=== PATIENT | female | born 2000 | race Hispanic/Latino ===

== ENCOUNTER 2019-01-04 14:09 | Emergency (ER) | payer BC ==
[2019-01-04 15:19] LABS: Absolute Lymphocytes (CBC) 1.8 K/uL (0.7-4.9); Basophils % 0.6 % (0-1.3); Hematocrit 43.4 % (36.0-45.0); Lymphocytes % 20.7 % (15.3-44.8); MPV 9.2 fL (7.6-11.3); Monocytes % 5.6 % (3.3-12.3); RBC Red Blood Cell Count 4.93 M/uL (3.86-4.86)
[2019-01-04 15:24] LABS: Protime INR 1.11
[2019-01-04 15:43] LABS: ALT/SGPT 16 U/L (12-78); AST/SGOT 17 U/L (15-37); Albumin 5.7 g/dL (3.4-5.0); Alkaline Phosphatase 73 U/L (45-117); BUN Blood Urea Nitrogen 11 mg/dL (7-18); Bicarbonate 24 mmol/L (21-32); Bilirubin Direct 0.4 mg/dL (0-0.2); Bilirubin Total 1.7 mg/dL (0.2-1.0); Glucose Level 91 mg/dL (74-106); Potassium 3.7 mmol/L (3.5-5.1); Protein, Total 8.2 g/dL (6.4-8.2); Sodium Level 138 mmol/L (136-145)
[2019-01-04 15:47] LABS: Barbiturates NEGATIVE (NEGATIVE); Benzodiazepines NEGATIVE (NEGATIVE); Cocaine NEGATIVE (NEGATIVE); METHAMPHETAM NEGATIVE (NEGATIVE); Methadone NEGATIVE (NEGATIVE); Opiates NEGATIVE (NEGATIVE); Phencyclidine NEGATIVE (NEGATIVE); THC Cannibis NEGATIVE (NEGATIVE)
[2019-01-04] MEDS ORDERED: DIAZEPAM 5 MG TABLET ONE (16:13)
[2019-01-04 17:11] LABS: Urine Blood NEGATIVE (NEG); Urine Glucose NEGATIVE (NEG); Urine Protein NEGATIVE (NEG); Urine Specific Gravity <1.005 (1.005-1.030); Urine pH 6.5 (5.0-7.0)
--- NOTE | 2019-01-04 18:44 | ER ---
Nurse's Notes [facility] Name: Negrita Souza Age: 18 yrs Sex: Female : 2000 Arrival Date: 01/04/2019 Time: 14:12 Bed 16 Private MD: Diagnosis: Manic episode;Manic episode, unspecified Presentation: 01/04 14:13 Presenting complaint: Patient states: 6 days ago, i took edible marijuana and i feel hj like i need help; denies hurting self, denies homicidal; reports being manic for 2-3 days; haven't slept and eaten a good meal; reports being diagnosed with psychosis; on triage, pt is uneasy, with written words on her L arm; with significant other during triage;. Transition of care: patient was not received from another setting of care. Onset of symptoms was January 04, 2019. Risk Assessment: Do you want to hurt yourself or someone else? Patient reports no desire to harm self or others. Initial Sepsis Screen: Does the patient meet any 2 criteria? No. Patient's initial sepsis screen is negative. Does the patient have a suspected source of infection? No. Patient's initial sepsis screen is negative. Care prior to arrival: None. 14:13 Method Of Arrival: Ambulatory 14:13 Acuity: KARLIE 2 hj Triage Assessment: 14:18 General: Appears in no apparent distress. uncomfortable, slender, Behavior is manic. hj Pain: Denies pain. 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 - Social history:: Smoking status: Patient/guardian denies using tobacco. - Ebola Screening: : No symptoms or risks identified at this time. Screenin:11 Abuse screen: Denies threats or abuse. Denies injuries from another. Nutritional sg screening: No deficits noted. Tuberculosis screening: No symptoms or risk factors identified. Never had TB. Fall Risk None identified. Assessment: 15:11 Reassessment: Patient appears in no apparent distress at this time. Patient and/or sg family updated on plan of care and expected duration. Pain level reassessed. Patient is alert, oriented x 3, equal unlabored respirations, skin warm/dry/pink. pt family/friend at bedside at this time. 15:20 General: Appears in no apparent distress. well groomed, well developed, well nourished, sg Behavior is cooperative, appropriate for age, anxious, restless. Pain: Denies pain. Neuro: Level of Consciousness is awake, alert, obeys commands, Oriented to person, place, time, Dairy Inspector are equal bilaterally Moves all extremities. Full function Speech is normal, Facial symmetry appears normal. Cardiovascular: Capillary refill is brisk in bilateral fingers Patient's skin is warm and dry. Chest pain is denied. Respiratory: Airway is patent Respiratory effort is even, unlabored, Respiratory pattern is regular, symmetrical. GI: Abdomen is flat, non-distended. : No signs and/or symptoms were reported regarding the genitourinary system. EENT: No signs and/or symptoms were reported regarding the EENT system. Derm: Skin is pink, warm \T\ dry. Musculoskeletal: Circulation, motion, and sensation intact. Range of motion: intact in all extremities. 16:11 Reassessment: Patient appears in no apparent distress at this time. No changes from sg previously documented assessment. pt still has anxiety at this time, pt requesting family/friend wait in the lobby, pt remains alone in the room, pt states that she is not homicidal or suicidal at this time, will continue to monitor. 18:25 Reassessment: Patient appears in no apparent distress at this time. report called to zhao Mcdonough with [facility]. 19:52 Reassessment: Patient and/or family updated on plan of care and expected duration. Pain ea level reassessed. Patient is alert, oriented x 3, equal unlabored respirations, skin warm/dry/pink. [facility] at facility for transfer, report given to [facility]. Pt left via stretcher per EMS, tolerating well. No s/s of pain or discomfort noted at this time. Psych: 15:33 Subjective: Patient's mood is elevated, Delusions are denied, Hallucinations are denied sg Having thoughts of denies suicidal/homicidal tendencies at this time. Objective: Patient is cooperative, restless, Speech is rapid, Affect is appropriate. Interventions: Urine collected and sent for urine drug test. Suicide Risk Assessment: Sad Person Scale: Sex of patient: Female: Score 0 points. Age of patient: Score 1 point if patient 15-34. Depression: Score 0 point if signs of depression are not present. Previous Attempt: Score 0 point if patient has not previously attempted suicide. Substance Abuse: Score 1 point if patient abuses alcohol or drugs. Rational Thinking: Score 0 point if patient has rational thinking. Social Support: Score 0 if social support is present/available. Relationship: Score 0 point if patient has a spouse or domestic partner. Chronic Sickness: Score 1 point if patient has illness, chronic, debilitating, or severe. TOTAL POINTS: If total points are 3-4, proposed clinical action is close follow-up/consider hospitalization. Safety Checks: Visitors are present. Patient uses marijuana monthly. Vital Signs: 14:19 BP 110 / 65; Pulse 98; Resp 20; Temp 98.6(TE); Pulse Ox 99% on R/A; Weight 45.36 kg; hj Height 5 ft. 1 in. (154.94 cm); Pain 0/10; 14:19 Body Mass Index 18.89 (45.36 kg, 154.94 cm) ED Course: 14:12 Patient arrived in ED. mr 14:18 Triage completed. hj 14:18 Henok Cabral MD is Attending Physician. kdr 14:18 Arm band placed on right wrist. hj 15:07 Initial lab(s) drawn, by wv, sent to lab. Inserted saline lock: 22 gauge in left jb1 antecubital area, using aseptic technique. Blood collected. 15:07 Urine collected: clean catch specimen, cloudy, lavon colored. jb1 15:11 Zack Peres, RN is Primary Nurse. sg 19:56 No provider procedures requiring assistance completed. IV discontinued, intact, ea bleeding controlled, No redness/swelling at site. Pressure dressing applied. Administered Medications: 16:05 Drug: Valium 5 mg Route: PO; sg 17:00 Follow up: Response: No adverse reaction; No change in condition sg Outcome: 18:43 ER care complete, transfer ordered by . kdr 19:30 Instructed on the need for transfer. ea 19:55 Transferred by ground EMS to other acute care facility: [facility]. Transfer ea form completed. 19:55 Condition: stable 20:00 Patient left the ED. ea Signatures: Montrell Viveros jb1 Zack Peres RN RN Henok Cabral MD MD [facility] Kylah Guillen mr Darrel Russell RN RN hj Antunez, Elena, RN RN ea Corrections: (The following items were deleted from the chart) 14:21 14:19 Pulse 98bpm; Resp 20bpm; Pulse Ox 99% RA; Temp 98.6F Temporal; 45.36 kg; Height 5 hj ft. 1 in.; BMI: 18.8; Pain 0/10; hj 14:23 14:13 Presenting complaint: Patient states: 6 days ago, i took edible marijuana and i hj feel like i need help; denies hurting self, denies homicidal; reports being manic for 2-3 days; haven't slept and eaten a good meal; hj
--- NOTE | 2019-01-04 18:44 | EDPHYS ---
Physician Documentation [facility] Name: Negrita Souza Age: 18 yrs Sex: Female : 2000 Arrival Date: 01/04/2019 Time: 14:12 Bed 16 Private MD: ED Physician Henok Cabral HPI: 01/05 07:36 This 18 yrs old Female presents to ER via Ambulatory with complaints of Psych kdr Problem. 07:36 The patient presents to the emergency department with anxiety, over unknown kdr circumstances, psychosis, has delusions, The patient is very manic. Onset: The symptoms/episode began/occurred 5 day(s) ago. Past psychiatric history: Prior diagnosis: Unknown. The patient had a prior inpatient admission in [place] many years ago when she was about 14, Psychiatric medications include: none. Associated signs and symptoms: The patient has no apparent associated signs or symptoms. Severity of symptoms: At their worst the symptoms were moderate in the emergency department the symptoms are unchanged are worse mildly. The patient has experienced similar episodes in the past, a few times. The patient has not recently seen a physician. 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 - Social history:: Smoking status: Patient/guardian denies using tobacco. - Ebola Screening: : No symptoms or risks identified at this time. ROS: 01/05 07:36 Constitutional: Negative for fever, chills, and weight loss, Eyes: Negative for injury, kdr pain, redness, and discharge, ENT: Negative for injury, pain, and discharge, Neck: Negative for injury, pain, and swelling, Cardiovascular: Negative for chest pain, palpitations, and edema, Respiratory: Negative for shortness of breath, cough, wheezing, and pleuritic chest pain, Abdomen/GI: Negative for abdominal pain, nausea, vomiting, diarrhea, and constipation, Back: Negative for injury and pain, : Negative for injury, bleeding, discharge, and swelling, MS/Extremity: Negative for injury and deformity, Skin: Negative for injury, rash, and discoloration, Neuro: Negative for headache, weakness, numbness, tingling, and seizure activity. Allergy/Immunology: Negative for hives, rash, and allergies, Endocrine: Negative for neck swelling, polydipsia, polyuria, polyphagia, and marked weight changes, Hematologic/Lymphatic: Negative for swollen nodes, abnormal bleeding, and unusual bruising. Psych: Positive for anxiety, insomnia, The patient is in a manic state and states that she needs to take a shower repeatedly.. Exam: 07:36 Constitutional: This is a well developed, well nourished patient who is awake, alert, kdr and in mild distress. She is busy around the room and is speaking non-sensically and with pressured speech. Head/Face: Normocephalic, atraumatic. Eyes: Pupils equal round and reactive to light, extra-ocular motions intact. Lids and lashes normal. Conjunctiva and sclera are non-icteric and not injected. Cornea within normal limits. Periorbital areas with no swelling, redness, or edema. Neck: Trachea midline, no thyromegaly or masses palpated, and no cervical lymphadenopathy. Supple, full range of motion without nuchal rigidity, or vertebral point tenderness. No Meningismus. Chest/axilla: Normal chest wall appearance and motion. Nontender with no deformity. No lesions are appreciated. Cardiovascular: Regular rate and rhythm with a normal S1 and S2. No gallops, murmurs, or rubs. Normal PMI, no JVD. No pulse deficits. Respiratory: Lungs have equal breath sounds bilaterally, clear to auscultation and percussion. No rales, rhonchi or wheezes noted. No increased work of breathing, no retractions or nasal flaring. Abdomen/GI: Soft, non-tender, with normal bowel sounds. No distension or tympany. No guarding or rebound. No evidence of tenderness throughout. Back: No spinal tenderness. No costovertebral tenderness. Full range of motion. Skin: Warm, dry with normal turgor. Normal color with no rashes, no lesions, and no evidence of cellulitis. MS/ Extremity: Pulses equal, no cyanosis. Neurovascular intact. Full, normal range of motion. Neuro: Awake and alert, GCS 15, oriented to person, place, time, and situation. Cranial nerves II-XII grossly intact. Motor strength 5/5 in all extremities. Sensory grossly intact. Cerebellar exam normal. Normal gait. 07:36 Psych: Behavior/mood is cooperative, anxious, Affect is animated, Oriented to person, place, time, Patient has no thoughts/intents to harm self or others. Judgement / Insight is impaired. Delusions/hallucinations are present and described as The patient thinks she needs to shower to get the "evil out.". Vital Signs: 01/04 14:19 BP 110 / 65; Pulse 98; Resp 20; Temp 98.6(TE); Pulse Ox 99% on R/A; Weight 45.36 kg; hj Height 5 ft. 1 in. (154.94 cm); Pain 0/10; 14:19 Body Mass Index 18.89 (45.36 kg, 154.94 cm) hj MDM: 18:43 Patient medically screened. [facility] 01/05 07:36 Data reviewed: vital signs, nurses notes, lab test result(s). Counseling: I had a [facility] detailed discussion with the patient and/or guardian regarding: the historical points, exam findings, and any diagnostic results supporting the discharge/admit diagnosis, lab results, the need to transfer to another facility. 01/04 14:20 Order name: Acetaminophen [facility] 01/04 14:20 Order name: Basic Metabolic Panel [facility] 01/04 14:20 Order name: CBC with Diff; Complete Time: 15:54 [facility] 01/04 14:20 Order name: ETOH Level; Complete Time: 15:54 [facility] 01/04 14:20 Order name: Hepatic Function [facility] 01/04 14:20 Order name: PT-INR; Complete Time: 15:54 [facility] 01/04 14:20 Order name: Ptt, Activated; Complete Time: 15:54 [facility] 01/04 14:20 Order name: Salicylate [facility] 01/04 14:20 Order name: Urine Drug Screen [facility] 01/04 14:20 Order name: IV Saline Lock; Complete Time: 15:07 [facility] 01/04 14:20 Order name: Labs collected and sent; Complete Time: 15:07 [facility] 01/04 14:20 Order name: Urine Dipstick-Ancillary (obtain specimen); Complete Time: 15:07 [facility] 01/04 15:02 Order name: Urine Dipstick--Ancillary (enter results) ms Administered Medications: 07/10 16:05 Drug: Valium 5 mg Route: PO; 17:00 Follow up: Response: No adverse reaction; No change in condition sg Disposition: 01/04/19 18:43 Transfer ordered to Psych Facility. Diagnosis are Manic episode, Manic episode, unspecified. - Reason for transfer: Higher level of care. - Accepting physician is Dr. Espinal. - Condition is Fair. - Problem is an acute exacerbation. - Symptoms are unchanged. Signatures: Dispatcher [employer] EDZack Lacey RN RAS Henok Cabral MD MD kdr Joaquin, Henry, RN RN Bridgett Austin RN RN ea Corrections: (The following items were deleted from the chart) 20:00 18:43 01/04/2019 18:43 Transfer ordered to Psych Facility. Diagnosis is Manic episode; ea Manic episode, unspecified. Reason for transfer: Higher level of care. Accepting physician is Dr. Espinal. Condition is Fair. Problem is an acute exacerbation. Symptoms are unchanged. kdr
== END 2019-01-04 20:00 ==
LOC: ER 14:09
DX: F30.9 Manic episode, unspecified (principal)
CPT/HCPCS: 36415; 80048; 80076; 80307; 80320; 80329; 81003; 85025; 85610; 85730; 99285

== ENCOUNTER 2020-12-12 23:32 | Emergency (ER) | payer BC, SELFPAY ==
--- OUTSIDE RECORDS SUMMARY | 2020-12-12 23:35 | XMS REPORT | Continuity of Care Document ---
:2000 Author Organization [facility] t Address [address] [place] [address] Care Team Providers Name Role Phone Unavailable Unavailable Unavailable Problems Condition Condition Condition Status Onset Resolution Last Treating Co mments Source Name Details Category Date Date Treatment Clinician Date Mixed Mixed Diagnosis Active [facility] hyperlipid hyperlipid Nolvia kes - emia emia Memoria l [facility] ent Clinics Generalize Generalize Diagnosis Active [facility] d anxiety d anxiety [facility] - disorder disorder Memori a l [facility] Clinics Abnormal Abnormal Problem Active [facility] Depression Depression Diagnosis Active [facility] , major, , major, [facility] - single single [facility]oria episode, episode, l mild mild [facility] Clinics Bipolar Bipolar Problem Active [facility] affective affective Luke [facility] - disorder, disorder, Remi libby current current l episode episode [facility] manic, manic, ent current current Clinics episode episode severity severity unspecifie unspecifie d d Adult BMI Adult BMI Diagnosis Active [facility] 27.0-27.9 27.0-27.9 Luke s - kg/sq m kg/sq m Mem[facility] l [facility] ent Clinics Abdominal Abdominal Diagnosis Active [facility] bloating bloating [facility] - [facility] Clinics Memory Memory Diagnosis Active [facility] change change [facility] Clinics GERD GERD Diagnosis Active [facility] without without [facility] - esophagiti esophagiti Me moria s s l [facility] ent Clinics Change in Change in Diagnosis Active [facility] bowel bowel [facility] - habit habit [facility] l [facility] ent Clinics Allergies, Adverse Reactions, Alerts This patient has no known allergies or adverse reactions. Medications Ordered Filled Start Stop Current Ordering Indication Dosage Frequency Signature Comments Components Source Medication Medication Date Date Medication? Clinician (SIG) Name Name Quetiapine Quetiapine Yes Mj TAKE ONE [facility] Fumarate Fumarate Win (1) [facility] - TABLET(S) Memoria BY MOUTH l AT [facility] BEDTIME. ent Clinics Mirtazapine Mirtazapine Yes Jm DISSOLVE [facility] Win ONE (1) [facility] - TABLET(S) Memoria BY MOUTH l ON THE [facility] TONGUE ent ONCE A DAY Clinics AT BEDTIME. Sertraline Sertraline Yes Mj TAKE FOUR [facility] HCl HCl Win (4) ML(S) [facility] - BY MOUTH [facility]oria DAILY. l [facility] ent Clinics Sertraline Sertraline Yes Mj [address] [facility] HCl HCl Win [facility] - [facility] l [facility] ent Clinics Procedures This patient has no known procedures. Encounters Start End Encounter Admission Attending Care Care Encounter Source Date/Time Date/Time Type Type Clinicians Facility Department ID 2020-03-13 2020-03-13 Outpatient Lazara Duenas [id number] [facility] 10:10:00 10:10:00 [employer] [facility] Medicine l Medicine [facility] ent Clinics 2019-11-08 2019-11-08 Outpatient Lazara Duenas [id number] [facility] 11:45:00 11:45:[address] [facility] Family Medicine l Medicine [facility] ent Clinics 2019-08-03 2019-08-03 Outpatient Lazara Duenas [id number] [facility] 15:00:00 15:00:00 [facility] Family Medicine l Medicine [facility] ent Clinics Results This patient has no known results.
[2020-12-13 00:29] LABS: Urine Blood Negative (Negative); Urine Glucose Negative (Negative); Urine Protein Negative (Negative); Urine pH 6.5 (5.0-7.0)
[2020-12-13] MEDS ORDERED: LORAZEPAM 1 MG TABLET ONE (01:26)
--- NOTE | 2020-12-13 01:59 | ER ---
Nurse's Notes [facility] Name: Negrita Souza Age: 20 yrs Sex: Female : 2000 Arrival Date: 12/12/2020 Time: 23:38 Bed 6 Private MD: Diagnosis: Bipolar disorder;Manic episode, unspecified Presentation: 12/12 23:38 Chief complaint: EMS states: called out for having a manic episode, hx of em bipolar/schizophrenia, denies HI/SI, has a lot of stress in her life, also states she could be , last LMP 1 week ago. Coronavirus screen: Client denies travel out of the [place] in the last 14 days. Ebola Screen: Patient negative for fever greater than or equal to 101.5 degrees Fahrenheit, and additional compatible Ebola Virus Disease symptoms Patient denies exposure to infectious person. Patient denies travel to an Ebola-affected area in the 21 days before illness onset. No symptoms or risks identified at this time. Initial Sepsis Screen: Does the patient meet any 2 criteria? HR > 90 bpm. No. Patient's initial sepsis screen is negative. Does the patient have a suspected source of infection? No. Patient's initial sepsis screen is negative. Risk Assessment: Do you want to hurt yourself or someone else? Patient reports no desire to harm self or others. Onset of symptoms was December 12, 2020. 23:38 Method Of Arrival: EMS: [facility] em 23:38 Acuity: KARLIE 2 em Triage Assessment: 23:42 General: Appears in no apparent distress. Behavior is calm, cooperative. Pain: Denies ak2 pain. 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 - Social history:: Smoking status: Patient reports the use of cigarette tobacco products, denies chronic smoking, but will smoke occasionally. - Family history:: not pertinent. Screenin:41 Abuse screen: Denies threats or abuse. Denies injuries from another. Nutritional ak2 screening: No deficits noted. Tuberculosis screening: No symptoms or risk factors identified. Fall Risk None identified. Assessment: 23:50 General: Appears in no apparent distress. uncomfortable, Behavior is anxious, rr5 uncooperative, refused to have IV re insertion wants to talk to the doctor first. Pain: Denies pain. Neuro: Level of Consciousness is awake, alert, Oriented to person, place, time. Cardiovascular: Capillary refill < 3 seconds Patient's skin is warm and dry. Respiratory: Airway is patent Respiratory effort is even, unlabored, Respiratory pattern is regular, symmetrical. GI: No signs and/or symptoms were reported involving the gastrointestinal system. : No signs and/or symptoms were reported regarding the genitourinary system. EENT: No signs and/or symptoms were reported regarding the EENT system. Derm: Skin is intact, is healthy with good turgor, Skin temperature is warm. 23:50 Musculoskeletal: No signs and/or symptoms reported regarding the musculoskeletal system.rr5 23:50 Reassessment: verbalized i want be alone i need you to get out of the room as stated by rr5 patient. 12/13 00:07 Reassessment: Patient appears in no apparent distress at this time. provider at bedside.rr5 00:15 Reassessment: refused for work up. rr5 00:53 Reassessment: Jimenez (father) [phone]. em 01:40 Reassessment: alex RN spoke to patient to do blood exam but she still refused to do rr5 it. went to nurses station spoke to ED provider. 02:39 Reassessment: Patient appears in no apparent distress at this time. resting eyes closed rr5 breathing spontaneously at room air, awaiting for results. 05:50 Reassessment: Patient appears in no apparent distress at this time. Patient is alert, rr5 oriented x 3, equal unlabored respirations, skin warm/dry/pink. awake went to restroom, voided freely. 06:07 Reassessment: awaiting for mental facility acceptance. rr5 06:15 Reassessment: patient gave verbal consent to give information to her father over the rr5 phone. 06:47 Reassessment: Patient appears in no apparent distress at this time. Patient is alert, rr5 oriented x 3, equal unlabored respirations, skin warm/dry/pink. calm, cooperative, follows command. 07:10 Reassessment: Patient appears in no apparent distress at this time. Patient and/or ph family updated on plan of care and expected duration. Pain level reassessed. Patient is alert, oriented x 3, equal unlabored respirations, skin warm/dry/pink. Pt sitting quietly, requesting pen and paper to "draw and write", father at bedside, awaiting acceptance at psychiatric facility. 10:22 Reassessment: pt sitting at nursing station. resting comfortably. calm, cooperative. tr6 denies need for any assistance at this time. 11:05 Reassessment: pt at RN station on phone with her pharmacy. home med list received and tr6 updated in chart. 12:41 Reassessment: Nurse to nurse report given to Cynthia at [facility]. ph 13:51 Reassessment: pt upset and crying, but consolable. RN at bedside. pt cooperative. tr6 informed of POC. pending transfer. father at bedside. 15:21 Reassessment: Belongings given to father and taken home. Awaiting [facility] to transport patient to [facility]. Pt remains voluntary. EMS dispatch states that they will be here within approximately 45 minutes. Psych: 12/12 23:44 [place] Suicide Severity Screening: In the past month, have you wished you were ak2 or wished you could go to sleep and not wake up? Patient responds "No." "In the past month, have you actually had any thoughts of killing yourself?" Patient responds "no." "In your lifetime, have you ever done anything, started to do anything, or prepared to do anything to end your life?" Patient responds "no.". Subjective: Patient's mood is elevated, Delusions are denied, Hallucinations are denied Having thoughts of. Objective: Patient is cooperative, Speech is normal, Affect is appropriate. Safety Checks: Door is open. Pt denies substance abuse. 12/13 00:00 Interventions: Removed personal items and placed in bag. Searched person for dangerous rr5 items. Urine collected and sent for urine drug test. 00:00 Commitment: Patient will be a voluntary commitment. rr5 01:00 Interventions: Patient reassessed during use of restraints. Patient is physically safe. rr5 Patient's cardiac status is stable. Patient's respirations are even and unlabored. Patient has good circulation in all extremities as indicated by capillary refill < 3 seconds. Patient's ROM assessed and is intact. Patient hygiene and elimination needs met. Patient assessed for signs of distress. Patient remains reasonably comfortable at this time. Assisted patient in de-escalation of behavior by removing stimuli causing behavior where possible. Restraints continue to be necessary for patient and staff safety. Vital Signs: 12/12 23:38 BP 127 / 87; Pulse 109; Resp 20; Temp 98.9; Pulse Ox 98% on R/A; Weight 52.62 kg; em Height 5 ft. 0 in. (152.40 cm); 12/13 02:49 BP 121 / 75; Pulse 90; Resp 16; Pulse Ox 99% ; rr5 06:39 BP 110 / 63; Pulse 76; Resp 16; Pulse Ox 100% on R/A; ak2 12:30 BP 118 / ???; Pulse 68; Resp 16; Temp 98.2; Pulse Ox 99% on R/A; ph 12/12 23:38 Body Mass Index 22.65 (52.62 kg, 152.40 cm) em ED Course: 12/12 23:38 Patient arrived in ED. em 23:40 Gunnar Barrios, RN is Primary Nurse. rr5 23:40 Triage completed. em 23:41 No apparent distress. ak2 23:41 Patient has correct armband on for positive identification. ak2 23:41 No provider procedures requiring assistance completed. ak2 23:42 Arm band placed on. em 23:50 Missed attempt(s): 20 gauge in right forearm. Bleeding controlled, band aid applied, rr5 catheter tip intact. 12/13 00:03 Charlie See MD is Attending Physician. [facility] 00:31 called the [facility] Crisis Line [phone]/ Sushma took patients information and eb will page out the screener family health nurse practitioner. 00:55 Urine collected: clean catch specimen, clear. rr5 01:00 connect Shalis from the [facility] with Dr. See for patient consultation. eb 01:07 connected Carlos from the [facility] via facetime with patient for screening. eb 02:00 Inserted saline lock: 22 gauge in left antecubital area, using aseptic technique. rr5 ,using aseptic technique. inserted by reji MCGINNIS Blood collected. 02:10 EKG done, by ED staff, reviewed by Charlie See MD. rr5 04:02 faxed patient records to the following facilities in attempt to transfer: [facility], [facility], [facility], [facility], [facility], [facility], [facility], [facility] and [facility]. 04:31 [facility] called to decline the patient in transfer due to eb being at capacity. 07:52 Cynthia at [facility] states pt is still on waiting list, awaiting for an open bed. [facility] 08:45 IV was discontinued by the patient. is intact, bleeding controlled. ph 09:15 Gena from [facility] called stated that they were still trying to get pt into [address] 09:38 Primary Nurse role handed off by Gunnar Barrios, RN ph 09:38 Leesa Nayak, RN is Primary Nurse. ph Administered Medications: 01:07 Drug: Ativan (LORazepam) 1 mg Route: PO; rr5 01:57 Follow up: Response: No adverse reaction em 02:06 Drug: Ativan (LORazepam) 2 mg Route: IVP; Site: left antecubital; em 02:49 Follow up: Response: No adverse reaction rr5 02:06 Drug: NS 0.9% 1000 ml Route: IV; Rate: 1 bolus; Site: left antecubital; em 02:49 Follow up: Response: No adverse reaction; IV Status: Completed infusion; IV Intake: rr5 1000ml 11:20 Not Given (Physician Discretion): Wellbutrin (bupropion) 75 mg PO once ss 13:50 Drug: SEROquel (QUEtiapine) 25 mg Route: PO; tr6 14:30 Follow up: Response: No adverse reaction ph 13:50 Drug: Wellbutrin (bupropion) 100 mg Route: PO; tr6 14:00 Follow up: Response: No adverse reaction ph 18:18 Not Given (Other Intervention Used): Geodon (ziprasidone) 20 mg IM once ph Intake: 02:49 IV: 1000ml; Total: 1000ml. rr5 Outcome: 01:58 ER care complete, transfer ordered by . [facility] 16:52 Patient left the ED. tr6 16:52 Transferred by ground EMS [facility]. to other acute care facility: [facility] ph 16:52 Condition: stable Signatures: Charlie See MD MD cha Munoz, Edgar, RN RN Magdalena Paige RN RN Leesa Nayak RN RN Michelle Mcclain 3 Emily Sood Raymond RN RN rr5 Teodora Allison RN RN tr6 Alex Lacey2 Corrections: (The following items were deleted from the chart) 12/12 23:52 23:50 General: Appears in no apparent distress. uncomfortable, Behavior is anxious, rr5 uncooperative, rr5 23:52 23:50 Musculoskeletal: Capillary refill < 3 seconds, rr5 rr5
--- NOTE | 2020-12-13 01:59 | EDPHYS ---
Physician Documentation [facility] Name: Negrita Souza Age: 20 yrs Sex: Female : 2000 Arrival Date: 12/12/2020 Time: 23:38 Bed 6 Private MD: ED Physician Charlie See HPI: 12/13 00:17 This 20 yrs old Female presents to ER via EMS with complaints of Psych Problem.amelie 00:17 The patient presents to the emergency department with anxiety, over unknown amelie circumstances, depression, psychosis. Onset: The symptoms/episode began/occurred 2 day(s) ago. Past psychiatric history: Prior diagnosis: bipolar disorder, schizophrenia. Associated signs and symptoms: The patient has no apparent associated signs or symptoms. Severity of symptoms: At their worst the symptoms were moderate in the emergency department the symptoms are unchanged. The patient has not experienced similar symptoms in the past. 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 - Social history:: Smoking status: Patient reports the use of cigarette tobacco products, denies chronic smoking, but will smoke occasionally. - Family history:: not pertinent. ROS: 12/13 00:17 Constitutional: Negative for fever, chills, and weight loss, Eyes: Negative for injury, amelie pain, redness, and discharge, ENT: Negative for injury, pain, and discharge, Neck: Negative for injury, pain, and swelling, Cardiovascular: Negative for chest pain, palpitations, and edema, Respiratory: Negative for shortness of breath, cough, wheezing, and pleuritic chest pain, Abdomen/GI: Negative for abdominal pain, nausea, vomiting, diarrhea, and constipation, Back: Negative for injury and pain, : Negative for injury, bleeding, discharge, and swelling, MS/Extremity: Negative for injury and deformity, Skin: Negative for injury, rash, and discoloration, Neuro: Negative for headache, weakness, numbness, tingling, and seizure, Allergy/Immunology: Negative for hives, rash, and allergies, Endocrine: Negative for neck swelling, polydipsia, polyuria, polyphagia, and marked weight changes, Hematologic/Lymphatic: Negative for swollen nodes, abnormal bleeding, and unusual bruising. Psych: Positive for anxiety, depression. Exam: 00:17 Constitutional: This is a well developed, well nourished patient who is awake, alert, amelie and in no acute distress. Head/Face: Normocephalic, atraumatic. Eyes: Pupils equal round and reactive to light, extra-ocular motions intact. Lids and lashes normal. Conjunctiva and sclera are non-icteric and not injected. Cornea within normal limits. Periorbital areas with no swelling, redness, or edema. ENT: Nares patent. No nasal discharge, no septal abnormalities noted. Tympanic membranes are normal and external auditory canals are clear. Oropharynx with no redness, swelling, or masses, exudates, or evidence of obstruction, uvula midline. Mucous membranes moist. Neck: Trachea midline, no thyromegaly or masses palpated, and no cervical lymphadenopathy. Supple, full range of motion without nuchal rigidity, or vertebral point tenderness. No Meningismus. Chest/axilla: Normal chest wall appearance and motion. Nontender with no deformity. No lesions are appreciated. Cardiovascular: Regular rate and rhythm with a normal S1 and S2. No gallops, murmurs, or rubs. Normal PMI, no JVD. No pulse deficits. Respiratory: Lungs have equal breath sounds bilaterally, clear to auscultation and percussion. No rales, rhonchi or wheezes noted. No increased work of breathing, no retractions or nasal flaring. Abdomen/GI: Soft, non-tender, with normal bowel sounds. No distension or tympany. No guarding or rebound. No evidence of tenderness throughout. Back: No spinal tenderness. No costovertebral tenderness. Full range of motion. Skin: Warm, dry with normal turgor. Normal color with no rashes, no lesions, and no evidence of cellulitis. MS/ Extremity: Pulses equal, no cyanosis. Neurovascular intact. Full, normal range of motion. Neuro: Awake and alert, GCS 15, oriented to person, place, time, and situation. Cranial nerves II-XII grossly intact. Motor strength 5/5 in all extremities. Sensory grossly intact. Cerebellar exam normal. Normal gait. Psych: Awake, alert, with orientation to person, place and time. Behavior, mood, and affect are within normal limits. 00:17 Musculoskeletal/extremity: DVT Exam: No signs of deep vein thrombosis. no pain, no swelling, no tenderness, negative Homans' sign noted on exam, no appreciated bluish discoloration, no erythema, no increased warmth. Vital Signs: 12/12 23:38 BP 127 / 87; Pulse 109; Resp 20; Temp 98.9; Pulse Ox 98% on R/A; Weight 52.62 kg; em Height 5 ft. 0 in. (152.40 cm); 12/13 02:49 BP 121 / 75; Pulse 90; Resp 16; Pulse Ox 99% ; rr5 06:39 BP 110 / 63; Pulse 76; Resp 16; Pulse Ox 100% on R/A; ak2 12:30 BP 118 / ???; Pulse 68; Resp 16; Temp 98.2; Pulse Ox 99% on R/A; ph 12/12 23:38 Body Mass Index 22.65 (52.62 kg, 152.40 cm) em MDM: 00:03 Patient medically screened. amelie 00:19 Differential diagnosis: drug withdrawal. acute psychotic break, depression, psychosis amelie secondary to non-compliance. Data reviewed: vital signs, nurses notes, lab test result(s), EKG, radiologic studies. 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 Test interpretation: by ED physician or midlevel provider: ECG. Counseling: I had a detailed discussion with the patient and/or guardian regarding: the historical points, exam findings, and any diagnostic results supporting the discharge/admit diagnosis, lab results, radiology results, the need for outpatient follow up. 12/12 23:42 Order name: Acetaminophen; Complete Time: 04:40 eb 12/12 23:42 Order name: Basic Metabolic Panel; Complete Time: 04:40 12/12 23:42 Order name: CBC with Diff; Complete Time: 02:41 12/12 23:42 Order name: ETOH Level; Complete Time: 02:49 12/12 23:42 Order name: Hepatic Function; Complete Time: 04:40 12/12 23:42 Order name: PT-INR; Complete Time: 02:49 12/12 23:42 Order name: Ptt, Activated; Complete Time: 02:49 12/12 23:42 Order name: Salicylate; Complete Time: 04:40 12/12 23:42 Order name: Urine Drug Screen; Complete Time: 02:41 12/13 00:29 Order name: Urine Dipstick-Ancillary; Complete Time: 01:35 EDMI 12/13 00:29 Order name: Urine --Ancillary (enter results); Complete Time: 01:35 12/13 01:54 Order name: COVID-19 : Document "Date of Symptom Onset" if Symptomatic. ak2 12/13 03:11 Order name: SARS-COV-2 RT PCR; Complete Time: 04:40 [facility] 12/12 23:42 Order name: EKG; Complete Time: 23:43 12/12 23:42 Order name: EKG - Nurse/Tech; Complete Time: 02:10 12/12 23:42 Order name: IV Saline Lock; Complete Time: 02:10 12/12 23:42 Order name: Labs collected and sent; Complete Time: 02:10 12/12 23:42 Order name: Suicide Screening ([place]); Complete Time: 06:03 12/12 23:42 Order name: Urine Dipstick-Ancillary (obtain specimen); Complete Time: 01:21 12/13 06:58 Order name: Diet Regular; Complete Time: 06:59 rr5 Administered Medications: 01:07 Drug: Ativan (LORazepam) 1 mg Route: PO; rr5 01:57 Follow up: Response: No adverse reaction em 02:06 Drug: Ativan (LORazepam) 2 mg Route: IVP; Site: left antecubital; em 02:49 Follow up: Response: No adverse reaction rr5 02:06 Drug: NS 0.9% 1000 ml Route: IV; Rate: 1 bolus; Site: left antecubital; em 02:49 Follow up: Response: No adverse reaction; IV Status: Completed infusion; IV Intake: rr5 1000ml 11:20 Not Given (Physician Discretion): Wellbutrin (bupropion) 75 mg PO once ss 13:50 Drug: SEROquel (QUEtiapine) 25 mg Route: PO; tr6 14:30 Follow up: Response: No adverse reaction ph 13:50 Drug: Wellbutrin (bupropion) 100 mg Route: PO; tr6 14:00 Follow up: Response: No adverse reaction ph 18:18 Not Given (Other Intervention Used): Geodon (ziprasidone) 20 mg IM once ph Disposition: 12/13/20 01:58 Transfer ordered to Psych Facility. Diagnosis are Bipolar disorder, Manic episode, unspecified. - Reason for transfer: Higher level of care. - Accepting physician is to psych accepted by dr. Sparks. - Condition is Fair. - Problem is new. - Symptoms have improved. Signatures: Dispatcher [employer] [facility] Charlie See MD MD cha Munoz, Edgar, RN RN Magdalena Paige RN RN Sameera Bone MD MD maEmily Jamison Raymond, RN RN rr5 Teodora Allison RN RN tr6 Leesa Nayak RN ph Corrections: (The following items were deleted from the chart) 02:15 01:55 CORONAVIRUS ordered. [facility] 13:54 01:58 12/13/2020 01:58 Transfer ordered to Psych Facility. Diagnosis is Bipolar ma2 disorder; Manic episode, unspecified. Reason for transfer: Higher level of care. Accepting physician is to psych. Condition is Fair. Problem is new. Symptoms have improved. [facility] 16:52 13:54 12/13/2020 01:58 Transfer ordered to Psych Facility. Diagnosis is Bipolar tr6 disorder; Manic episode, unspecified. Reason for transfer: Higher level of care. Accepting physician is to psych accepted by dr. Sparks. Condition is Fair. Problem is new. Symptoms have improved. ma2
[2020-12-13 02:06] LABS: Barbiturates NEGATIVE (NEGATIVE); Benzodiazepines NEGATIVE (NEGATIVE); Cocaine NEGATIVE (NEGATIVE); METHAMPHETAM NEGATIVE (NEGATIVE); Methadone NEGATIVE (NEGATIVE); Opiates NEGATIVE (NEGATIVE); Phencyclidine NEGATIVE (NEGATIVE); THC Cannibis POSITIVE (NEGATIVE)
[2020-12-13] MEDS ORDERED: LORazepam 2 MG/ML VIAL ONE (02:20)
[2020-12-13] MEDS ORDERED: NA CHLORIDE 0.9% 1,000 ML ONE (02:21)
[2020-12-13] MEDS ORDERED: WATER FOR INJ,STERILE 0 ML ONE (02:21)
[2020-12-13] MEDS ORDERED: ZIPRASIDONE MESYLA 20 MG/VIAL IM ONE (02:21)
[2020-12-13 02:22] LABS: Absolute Lymphocytes (CBC) 2.2 K/uL (0.7-4.9); Basophils % 0.5 % (0-1.3); Hematocrit 43.7 % (36.0-45.0); Lymphocytes % 18.9 % (15.3-44.8); MPV 8.9 fL (7.6-11.3); RBC Red Blood Cell Count 4.81 M/uL (3.86-4.86)
[2020-12-13 02:33] LABS: Protime INR 0.97
[2020-12-13 03:01] LABS: ALT/SGPT 16 U/L (12-78); AST/SGOT 13 U/L (15-37); Albumin 5.3 g/dL (3.4-5.0); Alkaline Phosphatase 86 U/L (45-117); BUN Blood Urea Nitrogen 16 mg/dL (7-18); Bicarbonate 24 mmol/L (21-32); Bilirubin Direct 0.3 mg/dL (0-0.2); Bilirubin Total 0.9 mg/dL (0.2-1.0); Glucose Level 121 mg/dL (74-106); Potassium 3.5 mmol/L (3.5-5.1); Protein, Total 8.2 g/dL (6.4-8.2); Sodium Level 136 mmol/L (136-145)
--- NOTE | 2020-12-13 07:39 | EKG ---
Test Date: 2020-12-13 Test Time: 02:01:12 Senior Counsel Commercial: RR MEASUREMENT RESULTS: Intervals: Rate: 97 [place]: 134 QRSD: 70 QT: 330 QTc: [address] [place]: P: 68 [place]: 134 QRS: 92 T: 66 INTERPRETIVE STATEMENTS: Normal sinus rhythm Rightward axis Borderline ECG No previous ECG available for comparison Electronically Signed On 12-13-20 07:39:08 CDT by Guero Buchanan
[2020-12-13] MEDS ORDERED: QUETIAPINE 25 MG TAB PO ONE (11:30)
[2020-12-13] MEDS ORDERED: buPROPion HCL 100 MG TAB PO ONE (11:30)
[2020-12-13] MEDS ORDERED: BUPROPION HCL XL 150 MG TAB PO ONE (11:45)
[2020-12-13 16:57] VITALS: TEMP 98.9
[2020-12-13 17:00] VITALS: BP 110/63; O2SAT 100
== END 2020-12-13 16:52 ==
LOC: ER 23:32
DX: F31.10 Bipolar disorder, current episode manic without psychotic features, unspecified (principal); Z20.822 Contact with and (suspected) exposure to COVID-19; F17.210 Nicotine dependence, cigarettes, uncomplicated; F20.9 Schizophrenia, unspecified
CPT/HCPCS: 36415; 80048; 80076; 80307; 80320; 80329; 81003; 81025; 85025; 85610; 85730; 93005; J3486; J7030; U0003

== ENCOUNTER 2021-03-18 11:34 | Emergency (ER) | payer OTHER, SELFPAY ==
[2021-03-18] MEDS ORDERED: NA CHLORIDE 0.9% 1,000 ML ONE (14:28)
[2021-03-18] MEDS ORDERED: LORazepam 2 MG/ML VIAL ONE (14:28)
[2021-03-18 14:31] LABS: Absolute Lymphocytes (CBC) 1.4 K/uL (0.7-4.9); Basophils % 0.4 % (0-1.3); Hematocrit 40.8 % (36.0-45.0); Lymphocytes % 9.9 % (15.3-44.8); MPV 7.6 fL (7.6-11.3); RBC Red Blood Cell Count 4.62 M/uL (3.86-4.86)
[2021-03-18 14:40] LABS: Protime INR 1.04
[2021-03-18 14:57] LABS: ALT/SGPT 12 U/L (12-78); AST/SGOT 11 U/L (15-37); Albumin 5.1 g/dL (3.4-5.0); Alkaline Phosphatase 63 U/L (45-117); BUN Blood Urea Nitrogen 14 mg/dL (7-18); Bicarbonate 24 mmol/L (21-32); Bilirubin Direct 0.2 mg/dL (0-0.2); Bilirubin Total 0.8 mg/dL (0.2-1.0); Glucose Level 98 mg/dL (74-106); Lipase 38 U/L (73-393); Potassium 3.7 mmol/L (3.5-5.1); Protein, Total 7.7 g/dL (6.4-8.2); Sodium Level 137 mmol/L (136-145)
[2021-03-18 15:09] LABS: Urine Blood Negative (Negative); Urine Glucose Negative (Negative); Urine Protein Negative (Negative)
--- NOTE | 2021-03-18 15:39 | RAD REPORT ---
EXAM DESCRIPTION: CT - Abdomen Pelvis W Contrast - 03/18/2021 3:25 pm CLINICAL HISTORY: left lower abdomen COMPARISON: No comparisons TECHNIQUE: Biphasic, helical CT imaging of the abdomen and pelvis was performed following 100 ml non -ionic IV contrast. No oral contrast administered. All CT scans are performed using dose optimization technique as appropriate and may include automated exposure control or mA/KV adjustment according to patient size. FINDINGS: No suspicious findings in the lung bases. The liver, spleen, and pancreas show no suspicious findings. Gallbladder and biliary tree are also wi thout suspicious finding. Symmetric renal function is seen with no hydronephrosis or suspicious renal mass. No pyelonephritis o r acute parenchymal process. No bladder abnormalities. No adrenal abnormalities. Uterus and ovaries s how no suspicious findings. Stomach and small bowel show no suspicious findings. The appendix is normal. Patient shows a constipa tion pattern. There is a large amount of stool present dilating the rectum to 7 cm. Large stool volum e is seen distending but not dilating the remainder of the colon. No free air, free fluid or inflammatory stranding. No hernia, mass or bulky lymphadenopathy. No suspicious bony findings. IMPRESSION: Constipation pattern is present with a large amount of stool distending but not dilating the colon from cecum to sigmoid colon. Rectum is dilated by stool to 7 cm. No appendicitis or acute colon process identified. No acute or BEHAVIORAL MEDICAL DIRECTOR process.
[2021-03-18 15:54] LABS: Barbiturates NEGATIVE (NEGATIVE); Benzodiazepines NEGATIVE (NEGATIVE); Cocaine NEGATIVE (NEGATIVE); METHAMPHETAM NEGATIVE (NEGATIVE); Methadone NEGATIVE (NEGATIVE); Opiates NEGATIVE (NEGATIVE); Phencyclidine NEGATIVE (NEGATIVE); THC Cannibis NEGATIVE (NEGATIVE)
[2021-03-18 16:06] LABS: Urine Bacteria <20 /HPF (<20); Urine RBC <5 /HPF (NONE SEEN)
[2021-03-18] MEDS ORDERED: AZITHROMYCIN 250 MG TAB ONE (16:40)
--- NOTE | 2021-03-18 17:59 | EDPHYS ---
Physician Documentation [facility] Name: Negrita Souza Age: 20 yrs Sex: Female : 2000 Arrival Date: 03/18/2021 Time: 11:35 Bed 10 Private MD: ED Physician Remigio Earl HPI: 03/18 14:00 This 20 yrs old Female presents to ER via Wheelchair with complaints of Psych cp Problem. 14:00 The patient presents to the emergency department with anxiety. Onset: The cp symptoms/episode began/occurred chronic. 14:00 Past psychiatric history: Prior diagnosis: bipolar disorder, schizophrenia. cp 14:00 Associated signs and symptoms: Pertinent positives; abdominal pain, anxiety, Pertinent cp negatives: chest pain, fever, hallucinations, homicidal ideation, substance abuse, suicide ideation. 14:05 Patient reports concern for possible STD and reports vaginal discharge, pain with cp intercourse. 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 - Social history:: Smoking status: Patient reports the use of cigarette tobacco products, CBD. ROS: 14:05 Constitutional: Negative for body aches, chills, fever, poor PO intake. cp 14:05 Respiratory: Negative for cough, shortness of breath, wheezing. cp 14:05 Abdomen/GI: Positive for abdominal pain, constipation, Negative for vomiting. 14:05 Eyes: Negative for injury, pain, redness, and discharge. cp 14:05 Cardiovascular: Negative for chest pain, palpitations. 14:05 ENT: Negative for ear pain, sore throat, difficulty swallowing, difficulty handling cp secretions. 14:05 Back: Negative for radiated pain. 14:05 : Positive for vaginal discharge, Negative for urinary symptoms, vaginal bleeding. 14:05 Neuro: Negative for altered mental status, headache, weakness. 14:05 Psych: Positive for anxiety, Negative for auditory hallucinations, visual hallucinations, homicidal ideation, suicide gesture, suicidal ideation. 14:05 All other systems are negative. Exam: 14:10 Constitutional: The patient appears in no acute distress, alert, awake, cp non-diaphoretic, non-toxic, well developed, well nourished, anxious. 14:10 Head/Face: Normocephalic, atraumatic. cp 14:10 Eyes: Periorbital structures: appear normal, Conjunctiva: normal, no exudate, no injection, Sclera: no appreciated abnormality, Lids and lashes: appear normal, bilaterally. 14:10 ENT: External ear(s): are unremarkable, Nose: is normal, Mouth: Lips: moist, Oral mucosa: pink and intact, moist, Posterior pharynx: Airway: no evidence of obstruction, patent. 14:10 Neck: ROM/movement: is normal, is supple, without pain, no range of motions limitations. 14:10 Chest/axilla: Inspection: normal, Palpation: is normal, no crepitus, no tenderness. 14:10 Cardiovascular: Rate: tachycardic, Rhythm: regular. 14:10 Respiratory: the patient does not display signs of respiratory distress, Respirations: labored breathing, that is moderate, shallow respirations, that is moderate, Breath sounds: are clear throughout, no decreased breath sounds, no stridor, no wheezing. 14:10 Abdomen/GI: Inspection: abdomen appears normal, Bowel sounds: active, all quadrants, Palpation: soft, in all quadrants, severe abdominal tenderness, in the left lower quadrant, rebound tenderness, is not appreciated, voluntary guarding, is elicited in the left lower quadrant. 14:10 Back: pain, is absent, ROM is normal. 14:10 Skin: cellulitis, is not appreciated, no rash present. 14:20 ECG was reviewed by the Attending Physician. cp 16:15 : Pelvic Exam: The exam is refused by the patient/guardian. The risks and cp consequences are understood by the patient. Vital Signs: 11:52 BP 104 / 77; Pulse 124; Resp 17; Temp 98.1; Pulse Ox 99% ; Weight 52.16 kg; Height 5 ll1 ft. 0 in. (152.40 cm); Pain 0/10; 13:58 BP 117 / 84; Pulse 136; Resp 20; Pulse Ox 96% on R/A; Pain 8/10; ld1 16:25 BP 102 / 81; Pulse 89; Resp 18; Pulse Ox 100% on R/A; tm3 11:52 Body Mass Index 22.46 (52.16 kg, 152.40 cm) ll1 MDM: 13:30 Patient medically screened. cp 14:00 Differential diagnosis: drug withdrawal. acute psychotic break, depression, psychosis cp secondary to non-compliance. 16:42 ED course: Dilated patient. Denies suicidal or homicidal ideations. States has a rn outpatient psychiatric appointment with psychiatrist in [place] tomorrow. She prefers this psychiatrist and she has done well with her before. Patient does not want to be admitted inpatient psychiatry. Wants to go home. Will discharge home with return precautions. Plans to go home with father and brother. Does not feel like she is going to harm herself.. 17:58 Data reviewed: vital signs, nurses notes, lab test result(s), EKG, radiologic studies, cp CT scan, ultrasound, I have discussed the patient's presentation/case with the attending Emergency Department Physician;. 17:58 Test interpretation: by ED physician or midlevel provider: ECG. Counseling: I had a cp detailed discussion with the patient and/or guardian regarding: the historical points, exam findings, and any diagnostic results supporting the discharge/admit diagnosis, lab results, radiology results, the need for outpatient follow up, for definitive care, a family practitioner, a psychiatrist, to return to the emergency department if symptoms worsen or persist or if there are any questions or concerns that arise at home. Response to treatment: the patient's symptoms have markedly improved after treatment, and as a result, I will discharge patient. ED course: VSS. Patient continues to deny any thoughts of suicide and/or homicide. Patient alert times 3 and appears in no acute distress, patient cooperative. Patient continues to request discharge to home and does not want to be transferred for inpatient psych treatment. 03/18 13:39 Order name: Acetaminophen; Complete Time: 15:16 cp 03/18 13:39 Order name: Basic Metabolic Panel; Complete Time: 15:16 cp 03/18 13:39 Order name: CBC with Diff; Complete Time: 15:16 cp 03/18 15:17 Interpretation: Abnormal: WBC 14.00; JOBY% 81.7; LYM% 9.9; NEUT A 11.4. cp 03/18 13:39 Order name: ETOH Level; Complete Time: 15:16 cp 03/18 13:39 Order name: Hepatic Function; Complete Time: 15:16 cp 03/18 15:18 Interpretation: Normal except: AST 11; ALB 5.1; A/G 2.0. cp 03/18 13:39 Order name: PT-INR; Complete Time: 15:16 cp 03/18 13:39 Order name: Ptt, Activated; Complete Time: 15:16 cp 03/18 13:39 Order name: Salicylate; Complete Time: 15:16 cp 03/18 13:39 Order name: Urine Drug Screen; Complete Time: 16:11 cp 03/18 13:39 Order name: Lipase; Complete Time: 15:16 cp 03/18 15:43 Interpretation: Abnormal: LIP 38. cp 03/18 13:39 Order name: Urine Microscopic Only; Complete Time: 16:11 cp 03/18 16:11 Interpretation: Normal except: SQEPI 5-10. cp 03/18 15:09 Order name: Urine Dipstick-Ancillary; Complete Time: 15:16 EDOR 03/18 15:17 Interpretation: Normal except: UKET 3+. 03/18 15:09 Order name: Urine --Ancillary (enter results); Complete Time: 16:11 bd 03/18 13:39 Order name: EKG; Complete Time: 13:40 cp 03/18 13:39 Order name: EKG - Nurse/Tech; Complete Time: 14:16 cp 03/18 13:39 Order name: IV Saline Lock; Complete Time: 14:17 cp 03/18 13:39 Order name: Labs collected and sent; Complete Time: 14:17 cp 03/18 13:39 Order name: Suicide Screening ([place]); Complete Time: 13:58 cp 03/18 13:39 Order name: Urine Dipstick-Ancillary (obtain specimen); Complete Time: 15:09 cp 03/18 13:39 Order name: Urine Test (obtain specimen); Complete Time: 15:09 cp 03/18 13:39 Order name: CT Abd/Pelvis - IV Contrast Only; Complete Time: 15:41 cp 03/18 15:42 Interpretation: Report reviewed. 03/18 17:31 Order name: Pelvis Complete; Complete Time: 18:05 EDMS 03/18 15:55 Order name: Pelvic Exam Setup; Complete Time: 15:56 cp EC:20 Rate is 113 beats/min. Rhythm is regular. ID interval is normal. QRS interval is cp normal. QT interval is normal. T waves are Inverted in lead aVR. Interpreted by me. Reviewed by me. Administered Medications: 14:16 Drug: Ativan (LORazepam) 0.5 mg Route: IVP; Site: right antecubital; ld1 14:17 Follow up: Response: No adverse reaction ld1 14:16 Drug: NS 0.9% 1000 ml Route: IV; Rate: 1 bolus; Site: right antecubital; ld1 16:01 Follow up: Response: No adverse reaction; IV Status: Completed infusion; IV Intake: ld1 1000ml 16:20 Drug: Zithromax (azithromycin) 1 grams Route: PO; ld1 16:20 Follow up: Response: No adverse reaction ld1 18:36 Drug: Magnesium Citrate Liquid 300 ml Route: PO; ld1 18:36 Follow up: Response: No adverse reaction ld1 Disposition Summary: 03/18/21 17:59 Discharge Ordered Location: Home cp Problem: an ongoing problem cp Symptoms: have improved cp Condition: Stable cp Diagnosis - Bipolar disorder, unspecified cp - Constipation cp Followup: cp - With: Private Physician - When: 1 - 2 days - Reason: Recheck today's complaints Discharge Instructions: - Discharge Summary Sheet cp - Constipation, Adult cp - Mixed Bipolar Disorder cp - Managing Bipolar Disorder cp Forms: - Medication Reconciliation Form cp - Thank You Letter cp - Antibiotic Education cp - Prescription Opioid Use cp Prescriptions: - Miralax 17 gram Oral powder in packet - take 1 packet by ORAL route once daily As needed; 20 packet; Refills: 0, cp Product Selection Permitted Addendum: 03/22/2021 19:04 Co-signature as Attending Physician, Remigio Earl MD I agree with the assessment and r n plan of care. Attestation: The patient's history, exam findings, diagnostics, and a summary of any interventions or procedures was reviewed in detail with Charlie BANEGAS. Signatures: Dispatcher [employer] EDMS Remigio Earl MD MD rn Page, Corey, PA PA cp Lewis, Lynsay RN RN ll1 Jacque Padilla RN RN ld1 Corrections: (The following items were deleted from the chart) 03/18 15:17 15:17 Abnormal: WBC 14.00. cp cp 16:00 15:55 Transvaginal Ob+US.RAD.BRZ ordered. EDMS EDMS 17:32 16:00 Transvaginal Study Probe ordered. EDOR EDMS 03/19 01:23 03/18 16:00 : Pelvic Exam: The exam is refused by the patient/guardian. The risks and cp consequences are understood by the patient, cp
--- NOTE | 2021-03-18 17:59 | ER ---
Nurse's Notes [facility] Name: Negrita Souza Age: 20 yrs Sex: Female : 2000 Arrival Date: 03/18/2021 Time: 11:35 Bed 10 Private MD: Diagnosis: Bipolar disorder, unspecified;Constipation Presentation: 03/18 11:52 Chief complaint: Patient states: Stopped all her meds, off/on since June. Can't ll1 afford them routinely. Feeling SI and HI. Has specific plan but doesn't want to talk about it. Chief complaint: sent in by Dr. Boggs office. Coronavirus screen: Client denies travel out of the [place] in the last 14 days. At this time, the client does not indicate any symptoms associated with coronavirus-19. Ebola Screen: Patient denies travel to an Ebola-affected area in the 21 days before illness onset. Initial Sepsis Screen: Does the patient meet any 2 criteria? HR > 90 bpm. No. Patient's initial sepsis screen is negative. Does the patient have a suspected source of infection? No. Patient's initial sepsis screen is negative. Risk Assessment: Do you want to hurt yourself or someone else? Patient reports no desire to harm self or others. Onset of symptoms was June 28, 2020. 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 - Social history:: Smoking status: Patient reports the use of cigarette tobacco products, CBD. Screenin:58 Abuse screen: Denies threats or abuse. Denies injuries from another. Nutritional ld1 screening: No deficits noted. Tuberculosis screening: No symptoms or risk factors identified. 18:38 Fall Risk None identified. ld1 Assessment: 13:58 General: Appears in no apparent distress. uncomfortable, Behavior is agitated, anxious, ld1 inappropriate for age. Pain: Complains of pain in left lower quadrant Pain does not radiate. Pain currently is 8 out of 10 on a pain scale. Quality of pain is described as throbbing, Pain began 1 day ago. Is intermittent. Neuro: Level of Consciousness is awake, alert, obeys commands, Oriented to person, place, time, situation. Cardiovascular: Capillary refill < 3 seconds Patient's skin is warm and dry. Respiratory: Airway is patent Respiratory effort is even, unlabored, Respiratory pattern is regular, symmetrical. GI: Abdomen is flat, non-distended, Reports lower abdominal pain, constipation. : No signs and/or symptoms were reported regarding the genitourinary system. EENT: No signs and/or symptoms were reported regarding the EENT system. Derm: No signs and/or symptoms reported regarding the dermatologic system. Musculoskeletal: No signs and/or symptoms reported regarding the musculoskeletal system. Psych: 13:40 [place] Suicide Severity Screening: In the past month, have you wished you were ld1 or wished you could go to sleep and not wake up? Patient responds "yes." "In the past month, have you actually had any thoughts of killing yourself?" Patient responds "no." "In your lifetime, have you ever done anything, started to do anything, or prepared to do anything to end your life?" Patient responds "yes.". Subjective: Patient's mood is irritable. Objective: Patient is cooperative, challenging, defensive. Interventions: Removed personal items and placed in bag. Patient placed in hospital gown. Searched person for dangerous items. Urine collected and sent for urine drug test. Belonging list filled out. Patient reassessed during use of restraints. Safety Checks: Sitter at bedside with pt. 13:40 Patient uses marijuana daily. Commitment: Patient will be a voluntary commitment. ld1 Vital Signs: 11:52 BP 104 / 77; Pulse 124; Resp 17; Temp 98.1; Pulse Ox 99% ; Weight 52.16 kg; Height 5 ll1 ft. 0 in. (152.40 cm); Pain 0/10; 13:58 BP 117 / 84; Pulse 136; Resp 20; Pulse Ox 96% on R/A; Pain 8/10; ld1 16:25 BP 102 / 81; Pulse 89; Resp 18; Pulse Ox 100% on R/A; tm3 11:52 Body Mass Index 22.46 (52.16 kg, 152.40 cm) ll1 ED Course: 11:35 Patient arrived in ED. am2 11:55 Triage completed. ll1 11:56 Arm band placed on. ll1 11:59 Charlie Murphy PA is PHCP. cp 11:59 Remigio Earl MD is Attending Physician. cp 13:26 Patient placed in an exam room, on a stretcher. ss 13:31 pt dad cell [phone]. bd 13:58 Patient has correct armband on for positive identification. Placed in gown. Bed in low ld1 position. Pulse ox on. NIBP on. Sitter at bedside. Door closed. Noise minimized. Patient is placed in psych hold. 13:58 No provider procedures requiring assistance completed. ld1 14:16 Initial lab(s) drawn, by me, sent to lab. Inserted saline lock: 20 gauge in right kj1 antecubital area, using aseptic technique. Blood collected. 15:09 Urine Microscopic Only Sent. ld1 15:25 CT Abd/Pelvis - IV Contrast Only In Process Unspecified. EDMS 15:53 faxed chart to [facility]. bd 17:32 Pelvis Complete In Process Unspecified. EDMS 18:38 IV discontinued, intact, bleeding controlled, No redness/swelling at site. ld1 Administered Medications: 14:16 Drug: Ativan (LORazepam) 0.5 mg Route: IVP; Site: right antecubital; ld1 14:17 Follow up: Response: No adverse reaction ld1 14:16 Drug: NS 0.9% 1000 ml Route: IV; Rate: 1 bolus; Site: right antecubital; ld1 16:01 Follow up: Response: No adverse reaction; IV Status: Completed infusion; IV Intake: ld1 1000ml 16:20 Drug: Zithromax (azithromycin) 1 grams Route: PO; ld1 16:20 Follow up: Response: No adverse reaction ld1 18:36 Drug: Magnesium Citrate Liquid 300 ml Route: PO; ld1 18:36 Follow up: Response: No adverse reaction ld1 Intake: 16:01 IV: 1000ml; Total: 1000ml. ld1 Outcome: 17:59 Discharge ordered by . cp 18:36 Discharged to home ambulatory, with family. ld1 18:36 Condition: stable 18:36 Discharge instructions given to patient, Instructed on discharge instructions, follow up and referral plans. medication usage, Demonstrated understanding of instructions, follow-up care, medications, Prescriptions given X 1. 18:38 Patient left the ED. ld1 Signatures: Dispatcher [employer] EDMS Amalia Nelson, Aditya tm3 Magdalena Paige, RN RN ss Charlie Murphy PA PA cp Moreno, Amanda am2 Chayo Yan kj1 Imani Garcia RN RN ll1 Jacque Padilla RN RN ld1
--- NOTE | 2021-03-18 18:01 | RAD REPORT ---
EXAM DESCRIPTION: US - Pelvis Complete - 03/18/2021 5:32 pm CLINICAL HISTORY: lower abdomen pain COMPARISON: No comparisons TECHNIQUE: Transabdominal pelvic sonography was performed. FINDINGS: Patient declined endovaginal sonography. Neither ovary was identifiable due to adnexal bow el. No blood or fluid seen in the cul de sac. Uterus is normal size measuring 8.2 x 1.9 x 3.6 cm. No myometrial mass lesion identifiable. Endometrium is 5 mm in thickness with no focal abnormality ident ifiable. IMPRESSION: No uterine abnormality identifiable on transabdominal sonography. Nonvisualization of the ovaries due to prominent adnexal bowel. No adnexal mass is identifiable.
[2021-03-18] MEDS ORDERED: MAGNESIUM CITRATE 300 ML BOT ONE (18:50)
[2021-03-18 20:50] VITALS: TEMP 98.1
[2021-03-18 20:52] VITALS: BP 102/81; O2SAT 100
--- NOTE | 2021-03-19 12:43 | EKG ---
Test Date: 2021-03-18 Test Time: 14:13:05 Gas Leak Inspector: BROCK MEASUREMENT RESULTS: Intervals: Rate: 113 CO: 134 QRSD: 68 QT: 316 QTc: 433 [place]: P: 79 CO: 134 QRS: 102 T: 60 INTERPRETIVE STATEMENTS: Sinus tachycardia Rightward axis Borderline ECG Compared to ECG 12/13/2020 02:01:12 Sinus rhythm no longer present Electronically Signed On 03-19-21 12:41:35 CDT by Guero Buchanan
== END 2021-03-18 18:38 | disposition home or self-care (01) ==
LOC: ER 11:34
DX: F31.9 Bipolar disorder, unspecified (principal); K59.00 Constipation, unspecified
CPT/HCPCS: 96361; 93005; 85025; 80048; 36415; 80320; 80329 ×2; 81025; 85610; 80076; 85730; 83690; 80307; 74177; 76856; 96374; 99285; Q9967; J7030; 81003; 81015

== ENCOUNTER 2021-03-19 15:03 | Emergency (ER) | payer OTHER ==
[2021-03-19] MEDS ORDERED: DIPHENHYDRAMINE 25 MG TAB/CAP ONE (17:15)
[2021-03-19] MEDS ORDERED: HALOPERIDOL LACT 5 MG/ML INJ ONE (17:30)
[2021-03-19] MEDS ORDERED: LORazepam 2 MG/ML VIAL ONE (17:30)
[2021-03-19 19:06] LABS: Absolute Lymphocytes (CBC) 2.8 K/uL (0.7-4.9); Basophils % 0.5 % (0-1.3); Lymphocytes % 24.5 % (15.3-44.8); MPV 7.9 fL (7.6-11.3); RBC Red Blood Cell Count 3.93 M/uL (3.86-4.86)
[2021-03-19 19:10] LABS: Protime INR 1.09
[2021-03-19 19:44] LABS: Benzodiazepines NEGATIVE (NEGATIVE); Phencyclidine NEGATIVE (NEGATIVE)
[2021-03-19 19:45] LABS: Barbiturates NEGATIVE (NEGATIVE); Cocaine NEGATIVE (NEGATIVE); METHAMPHETAM NEGATIVE (NEGATIVE); Methadone NEGATIVE (NEGATIVE); Opiates NEGATIVE (NEGATIVE); THC Cannibis NEGATIVE (NEGATIVE)
[2021-03-19 20:21] LABS: ALT/SGPT 14 U/L (12-78); AST/SGOT 12 U/L (15-37); Albumin 4.3 g/dL (3.4-5.0); Alkaline Phosphatase 60 U/L (45-117); BUN Blood Urea Nitrogen 6 mg/dL (7-18); Bicarbonate 27 mmol/L (21-32); Bilirubin Direct 0.2 mg/dL (0-0.2); Bilirubin Total 0.7 mg/dL (0.2-1.0); Glucose Level 84 mg/dL (74-106); Protein, Total 6.6 g/dL (6.4-8.2); Sodium Level 140 mmol/L (136-145)
--- NOTE | 2021-03-19 20:41 | RAD REPORT ---
EXAM DESCRIPTION: RAD - Abdomen 1 View (KUB) - 03/19/2021 8:19 pm CLINICAL HISTORY: CONSTIPATION COMPARISON: No comparisons FINDINGS: Nonobstructive bowel gas pattern. No acute osseous abnormality.Visualized lungs are unrema rkable.No abnormal calcifications. Moderate stool in the colon. IMPRESSION: Nonobstructive bowel gas pattern.
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
[2021-03-20 02:04] LABS: Urine Specific Gravity/Preg 1.015 (1.005-1.030)
[2021-03-20 09:44] VITALS: BP 121/89; TEMP 97.6; O2SAT 100
== END 2021-03-20 09:04 ==
LOC: ER 15:03
DX: F29 Unspecified psychosis not due to a substance or known physiological condition (principal); K59.00 Constipation, unspecified; F20.9 Schizophrenia, unspecified; Z20.822 Contact with and (suspected) exposure to COVID-19
CPT/HCPCS: 85025; 80048; 36415; 80320; 80329 ×2; 81025; 85610; 80076; 85730; 80307; 74018; 96372; 99285; U0003; J1630

== ENCOUNTER 2022-12-01 07:33 | Emergency (ER) | payer BC ==
--- OUTSIDE RECORDS SUMMARY | 2022-12-01 07:44 | XMS REPORT | Continuity of Care Document ---
:2000 Author Organization [facility] t Address [address] [place] [address] Care Team Providers Name Role Phone Tanesha Morin Primary Care Physician Mj Win Attending Clinician Unavailable GEMA MAHAJAN Attending Clinician Unavailable ISAIAH KOROMA Attending Clinician Unavailable Isaiah Koroma MD Attending Clinician Barb Jackson LVN Attending Clinician Unavailable NIKI SINGER Attending Clinician Unavailable Nurse, [facility] Attending Clinician Unavailable Niki Singer PA-C Attending Clinician Doctor Unassigned, [place] Attending Clinician Unavailable Gema Newsome Attending Clinician 2, [facility] Attending Clinician Unavailable Tanesha Morin Attending Clinician TANESHA MOTLEY Attending Clinician Unavailable Lab, [facility] - Db Attending Clinician Unavailable AVELINO HUNTER Attending Clinician Unavailable Payers Payer Name Policy Type Policy Number Effective Date Expiration Date S [facility] [id number] 2022 00:00:00 [employer] 6 [id number] Common Spiri t Blue Shield of - [facility] Problems Condition Condition Condition Status Onset Resolution Last Treating Co mments Source Name Details Category Date Date Treatment Clinician Date [id number] Bipolar Problem Active Commo n affective Spirit disorder, - [facility] current [facility] manic, Medical current Center episode severity unspecifie d [id number] Memory Problem Active Common change Spirit [facility] [id number] GERD Problem Active Common without Spirit esophagiti [facility] [id number] Depression Problem Active Com mon , major, Spirit single - [facility] episode, [facility] [id number] Generalize Problem Active Com mon d anxiety [facility] disorder [facility] [id number] Mixed Problem Active Common hyperlipid [facility] emia [facility] [id number] Abnormal Problem Active Comm on urine [facility] No known No known Disease Unive rs active active ity of problems problems [facility] Allergies, Adverse Reactions, Alerts Allergy Allergy Status Severity Reaction(s) Onset Inactive Treating Comm ents Source Name Type Date Date Clinician NO KNOWN Drug Active Univers ALLERGIE Class ity of S [facility] Social History Social Habit Start Date Stop Date Quantity Comments Source History of Common Spirit - Tobacco Use [facility] Sex Assigned At Common Sp madai - [facility] Alcohol intake 2022-12-01 2022-12-01 Current drinker Unive rsity of 00:00:00 00:00:00 of alcohol [facility] (finding) [place] Exposure to 2022-09-26 2022-10-06 Not sure [facility]-CoV-2 00:00:00 14:04:00 [facility] (event) [place] Alcohol Comment 2022-08-06 2022-08-06 few drinks per Unive rsity of 00:00:00 00:00:00 months [facility] Tobacco use and 2022-04-06 2022-04-06 Smokeless tobacco Un iversity of exposure 00:00:00 00:00:00 non-user [facility] Smoking Status Start Date Stop Date Source Never smoked tobacco [facility] Former Smoker 2020-03-29 00:00:00 2020-03-29 00:00:00 [facility] pirit - [facility] Ce nter Medications Ordered Filled Start Stop Current Ordering Indication Dosage Frequency Signature Comments Components Source Medication Medication Date Date Medication? Clinician (SIG) Name Name fluconazole 2022- No [id number] 150mg Take 1 Univers 150 mg 07-27 tablet by ity of tablet 00:00: 05:59 [place] now for 1 Medical dose. Branch clotrimazol 2022- No [id number] 1{appli Insert 1 Univers e 2 % 07-24 cator} Applicator ity o f vaginal 00:00: 05:59 into [place] cream 00 :[address] vagina [address] [facility] for 3 days. clotrimazol 2022- No [id number] 1{appli Insert 1 Univers e 2 % 07-24 cator} Applicator ity o f vaginal 00:00: 05:59 into [place] cream 00 :[address] [facility] for 3 days. clotrimazol 2022- No [id number] 1{appli Insert 1 Univers e 2 % 07-24 cator} Applicator ity o f vaginal 00:00: 05:59 into [place] cream 00 :[address] [facility] for 3 days. cefTRIAXone 2022- No [id number] 500mg Univers (ROCEPHIN) 07-23 ity of injection 17:30: 17:22 [place] 500 mg 00 :00 [facility] cefTRIAXone 2022- No [id number] 500mg 500 mg, Univers (ROCEPHIN) 07-23 Intramuscu it y of injection 17:30: 17:22 [place], ONCE, [place] 500 mg 00 :00 1 dose, On [facility] Branch 07/23/22 at 1130, Routine
Reason for Anti-Infec tive: Empiric Therapy for Suspected Infection< br>Empiric Therapy Site: Pelvic
Duration of therapy: 72 hours cefTRIAXone 2022- No [id number] 500mg Univers (ROCEPHIN) 07-23 ity of injection 17:30: 17:22 [place] 500 mg 00 :00 [facility] cefTRIAXone 2022- No [id number] 500mg 500 mg, Univers (ROCEPHIN) 07-23 Intramuscu it y of injection 17:30: 17:22 [place], ONCE, [place] 500 mg 00 :00 1 dose, On Medical Nikki Branch 07/23/22 at 1130, Routine
Reason for Anti-Infec tive: Empiric Therapy for Suspected Infection< br>Empiric Therapy Site: Pelvic
Duration of therapy: 72 hours doxycycline 2022- No [id number] 100mg Take 1 Univers hyclate 100 07-23 04 tablet by it y of mg tablet 00:00: 05:59 mouth in [place] 00 :00 the Medical morning Branch and 1 tablet in the evening. Do all this for 7 days. doxycycline 2022-2022- No [id number] 100mg Take 1 Univers hyclate 100 07-23 04 tablet by it y of mg tablet 00:00: 05:59 mouth in [place] 00 :00 the Medical morning Branch and 1 tablet in the evening. Do all this for 7 days. doxycycline 2022- No [id number] 100mg Take 1 Univers hyclate 100 07-23 04 tablet by it y of mg tablet 00:00: 05:59 mouth in [place] 00 :00 the Medical morning Branch and 1 tablet in the evening. Do all this for 7 days. doxycycline No [id number] 100mg Take 1 Univers hyclate 100 07-23 04 tablet by it y of mg tablet 00:00: 05:59 mouth in [place] 00 :00 the Medical morning Branch and 1 tablet in the evening. Do all this for 7 days. doxycycline No [id number] 100mg Take 1 Univers hyclate 100 07-23 04 tablet by it y of mg tablet 00:00: 05:59 mouth in [place] 00 :00 the Medical morning Branch and 1 tablet in the evening. Do all this for 7 days. doxycycline 2022-2022- No [id number] 100mg Take 1 Univers hyclate 100 07-23 04 tablet by it y of mg tablet 00:00: 05:59 mouth in [place] 00 :00 the Medical morning Branch and 1 tablet in the evening. Do all this for 7 days. miconazole 2021-06 Yes [id number] 100mg Insert 1 Univers 100 mg 1-17 Suppositor ity of vaginal 00:00: y into [place] suppository 00 vagina at [facility] Branch miconazole 2021-06 Yes [id number] 100mg Insert 1 Univers 100 mg 1-17 Suppositor ity of vaginal 00:00: y into [place] suppository 00 vagina at [facility] bedtime. Branch miconazole 2021-06 Yes [id number] 100mg Insert 1 Univers 100 mg 1-17 Suppositor ity of vaginal 00:00: y into [place] suppository 00 vagina at [facility] Branch miconazole 2021-06 Yes [id number] 100mg Insert 1 Univers 100 mg 1-17 Suppositor ity of vaginal 00:00: y into [place] suppository 00 vagina at [facility] Branch miconazole 2021-06 Yes [id number] 100mg Insert 1 Univers 100 mg 1-17 Suppositor ity of vaginal 00:00: y into [place] suppository 00 vagina at [facility] Branch miconazole 2021-06- No [id number] 100mg Insert 1 Univers 100 mg 1-17 - Suppositor ity of vaginal 00:00: 00:00 y into [place] suppository 00 :00 vagina at [facility] Branch miconazole 2021-06- No [id number] 100mg Insert 1 Univers 100 mg 1-17 -26 Suppositor ity of vaginal 00:00: 00:00 y into [place] suppository 00 :00 vagina at [facility] Branch fluconazole 2021-06- No [id number] 150mg Take 1 Univers 150 mg 1-17 11-18 tablet by ity of tablet 00:00: 05:59 [place] 00 :[place] now for 1 Medical dose. Branch fluconazole 2021-06- No [id number] 150mg Take 1 Univers 150 mg 1-17 11-18 tablet by ity of tablet 00:00: 05:59 mouth [place] 00 :[place] now for 1 Medical dose. Branch fluconazole 2021-06- No [id number] 150mg Take 1 Univers 150 mg 1-17 11-18 tablet by ity of tablet 00:00: 05:59 mouth [place] 00 :[place] now for 1 Medical dose. Branch fluconazole 2021-06- No [id number] 150mg Take 1 Univers 150 mg 0-11 10-12 tablet by ity of tablet 00:00: 04:59 mouth [place] 00 :00 now for 1 Medical dose. Branch fluconazole 2021-06- No [id number] 150mg Take 1 Univers 150 mg 0-11 10-12 tablet by ity of tablet 00:00: 04:59 mouth [place] 00 :00 now for 1 Medical dose. Branch mirtazapine 2021-06 Yes 15mg Take 15 mg Univers 15 mg 0-10 by mouth ity of tablet 09:43: at [place] 10 bedtime. Medical Branch mirtazapine 2021-06 Yes 15mg Take 15 mg Univers 15 mg 0-10 by mouth ity of tablet 09:43: at [place] 10 bedtime. [facility] Branch mirtazapine 2021- Yes 15mg Take 15 mg Univers 15 mg 0-10 by mouth ity of tablet 09:43: at [place] 10 bedtime. [facility] Branch mirtazapine 2021- Yes 15mg Take 15 mg Univers 15 mg 0-10 by mouth ity of tablet 09:43: at [place] 10 bedtime. [facility] Branch mirtazapine 2021- Yes 15mg Take 15 mg Univers 15 mg 0-10 by mouth ity of tablet 09:43: at [place] 10 bedtime. [facility] Branch mirtazapine 2021-06 Yes 15mg Take 15 mg Univers 15 mg 0-10 by mouth ity of tablet 09:43: at [place] 10 bedtime. [facility] Branch mirtazapine 2021- Yes 15mg Take 15 mg Univers 15 mg 0-10 by mouth ity of tablet 09:43: at [place] 10 bedtime. [facility] Branch mirtazapine 2021- Yes 15mg Take 15 mg Univers 15 mg 0-10 by mouth ity of tablet 09:43: at [place] 10 bedtime. [facility] Branch mirtazapine 2021- Yes 15mg Take 15 mg Univers 15 mg 0-10 by mouth ity of tablet 09:43: at [place] 10 bedtime. [facility] Branch mirtazapine 2021- Yes 15mg Take 15 mg Univers 15 mg 0-10 by mouth ity of tablet 09:43: at [place] 10 bedtime. [facility] Branch mirtazapine 2021- Yes 15mg Take 15 mg Univers 15 mg 0-10 by mouth ity of tablet 09:43: at [place] 10 bedtime. Medical Branch mirtazapine 2021- Yes 15mg Take 15 mg Univers 15 mg 0-10 by mouth ity of tablet 09:43: at [place] 10 bedtime. Medical Branch mirtazapine 2021-1 Yes 15mg Take 15 mg Univers 15 mg 0-10 by mouth ity of tablet 09:43: at [place] 10 bedtime. Medical Branch mirtazapine 2021-1 Yes 15mg Take 15 mg Univers 15 mg 0-10 by mouth ity of tablet 09:43: at [place] 10 bedtime. Medical Branch mirtazapine 2021-1 Yes 15mg Take 15 mg Univers 15 mg 0-10 by mouth ity of tablet 09:43: at [place] 10 bedtime. Medical Branch mirtazapine 2021- Yes 15mg Take 15 mg Univers 15 mg 0-10 by mouth ity of tablet 09:43: at [place] 10 bedtime. Medical Branch mirtazapine 2021-1 Yes 15mg Take 15 mg Univers 15 mg 0-10 by mouth ity of tablet 09:43: at [place] 10 bedtime. Medical Branch mirtazapine 2021- Yes 15mg Take 15 mg Univers 15 mg 0-10 by mouth ity of tablet 09:43: at [place] 10 bedtime. Medical Branch mirtazapine 2021- Yes 15mg Take 15 mg Univers 15 mg 0-10 by mouth ity of tablet 09:43: at [place] 10 bedtime. Medical Branch mirtazapine 2021- Yes 15mg Take 15 mg Univers 15 mg 0-10 by mouth ity of tablet 09:43: at [place] 10 bedtime. Medical Branch mirtazapine 2021-1 Yes 15mg Take 15 mg Univers 15 mg 0-10 by mouth ity of tablet 09:43: at [place] 10 bedtime. Medical Branch mirtazapine 2021-1 Yes 15mg Take 15 mg Univers 15 mg 0-10 by mouth ity of tablet 09:43: at [place] 10 bedtime. Medical Branch mirtazapine 2021-1 Yes 15mg Take 15 mg Univers 15 mg 0-10 by mouth ity of tablet 09:43: at [place] 10 bedtime. Medical Branch mirtazapine 2021-1 Yes 15mg Take 15 mg Univers 15 mg 0-10 by mouth ity of tablet 09:43: at [place] 10 bedtime. Medical Branch mirtazapine 2021- Yes 15mg Take 15 mg Univers 15 mg 0-10 by mouth ity of tablet 09:43: at [place] 10 bedtime. Medical Branch mirtazapine 2021- Yes 15mg Take 15 mg Univers 15 mg 0-10 by mouth ity of tablet 09:43: at [place] 10 bedtime. Medical Branch mirtazapine 2021- Yes 15mg Take 15 mg Univers 15 mg 0-10 by mouth ity of tablet 09:43: at [place] 10 bedtime. Medical Branch mirtazapine 2021- Yes 15mg Take 15 mg Univers 15 mg 0-10 by mouth ity of tablet 09:43: at [place] 10 bedtime. Medical Branch atomoxetine 0 Yes TAKE ONE [place] 40 mg 9-16 (1) ity of capsule 00:00: [place]) [place] 00 BY MOUTH Medical EVERY [place] MORNING. QUEtiapine 2021-0 Yes 100mg Take 100 [place] 100 mg 9-16 mg by ity of tablet 00:00: mouth at [place] 00 bedtime. Medical Branch atomoxetine 2021-0 Yes TAKE ONE [place] 40 mg 9-16 (1) ity of capsule 00:00: CAPSULE(S) [place] 00 BY MOUTH Medical EVERY [place] MORNING. QUEtiapine 2021-0 Yes 100mg Take 100 [place] 100 mg 9-16 mg by ity of tablet 00:00: mouth at [place] 00 bedtime. Medical Branch atomoxetine 2021-0 Yes TAKE ONE [place] 40 mg 9-16 (1) ity of capsule 00:00: CAPSULE(S) [place] 00 BY MOUTH Medical EVERY [place] MORNING. QUEtiapine 2-0 Yes 100mg Take 100 [place] 100 mg 9-16 mg by ity of tablet 00:00: mouth at [place] 00 bedtime. Medical Branch atomoxetine 2021-0 Yes TAKE ONE [place] 40 mg 9-16 (1) ity of capsule 00:00: CAPSULE(S) [place] 00 BY MOUTH Medical EVERY [place] MORNING. QUEtiapine 2-0 Yes 100mg Take 100 [place] 100 mg 9-16 mg by ity of tablet 00:00: mouth at [place] 00 bedtime. Medical Branch atomoxetine 2021-0 Yes TAKE ONE [place] 40 mg 9-16 (1) ity of capsule 00:00: CAPSULE(S) [place] 00 BY MOUTH Medical [facility] MORNING. QUEtiapine 2-0 Yes 100mg Take 100 [place] 100 mg 9-16 mg by ity of tablet 00:00: mouth at [place] [address] bedtime. Medical Branch atomoxetine 2021-0 Yes TAKE ONE [place] 40 mg 9-16 (1) ity of capsule 00:00: CAPSULE(S) [place] 00 BY MOUTH [facility] MORNING. QUEtiapine 2021-0 Yes 100mg Take 100 [place] 100 mg 9-16 mg by ity of tablet 00:00: mouth at [place] [address] bedtime. Medical Branch atomoxetine 0 Yes TAKE ONE [place] 40 mg 9-16 (1) ity of capsule 00:00: CAPSULE(S) [place] 00 BY [facility] MORNING. QUEtiapine 2021-0 Yes 100mg Take 100 [place] 100 mg 9-16 mg by ity of tablet 00:00: mouth at [place] [address] bedtime. Medical Branch atomoxetine 2021-0 Yes TAKE ONE [place] 40 mg 9-16 (1) ity of capsule 00:00: CAPSULE(S) [place] 00 BY MOUTH [facility] MORNING. QUEtiapine 2021-0 Yes 100mg Take 100 [place] 100 mg 9-16 mg by ity of tablet 00:00: mouth at [place] [address] bedtime. Medical Branch atomoxetine 2021-0 Yes TAKE ONE [place] 40 mg 9-16 (1) ity of capsule 00:00: CAPSULE(S) [place] 00 BY MOUTH [facility] MORNING. QUEtiapine 2-0 Yes 100mg Take 100 [place] 100 mg 9-16 mg by ity of tablet 00:00: mouth at [place] [address] bedtime. Medical Branch atomoxetine 2021-0 Yes TAKE ONE [place] 40 mg 9-16 (1) ity of capsule 00:00: CAPSULE(S) [place] 00 BY MOUTH [facility] MORNING. QUEtiapine 2-0 Yes 100mg Take 100 [place] 100 mg 9-16 mg by ity of tablet 00:00: mouth at [place] [address] bedtime. Medical Branch atomoxetine 2021-0 Yes TAKE ONE [place] 40 mg 9-16 (1) ity of capsule 00:00: CAPSULE(S) [place] 00 BY MOUTH Medical EVERY [place] MORNING. QUEtiapine 2-0 Yes 100mg Take 100 [place] 100 mg 9-16 mg by ity of tablet 00:00: mouth at [place] 00 bedtime. Medical Branch atomoxetine 2021-0 Yes TAKE ONE [place] 40 mg 9-16 (1) ity of capsule 00:00: CAPSULE(S) [place] 00 BY MOUTH Medical EVERY [place] MORNING. QUEtiapine 2021-0 Yes 100mg Take 100 [place] 100 mg 9-16 mg by ity of tablet 00:00: mouth at [place] 00 bedtime. Medical Branch atomoxetine 0 Yes TAKE ONE [place] 40 mg 9-16 (1) ity of capsule 00:00: CAPSULE(S) [place] 00 BY MOUTH Medical EVERY [place] MORNING. QUEtiapine 2021-0 Yes 100mg Take 100 [place] 100 mg 9-16 mg by ity of tablet 00:00: mouth at [place] [address] bedtime. Medical Branch atomoxetine 2021-0 Yes TAKE ONE [place] 40 mg 9-16 (1) ity of capsule 00:00: CAPSULE(S) [place] 00 BY MOUTH Medical EVERY [place] MORNING. QUEtiapine 2-0 Yes 100mg Take 100 [place] 100 mg 9-16 mg by ity of tablet 00:00: mouth at [place] [address] bedtime. Medical Branch atomoxetine 2021-0 Yes TAKE ONE [place] 40 mg 9-16 (1) ity of capsule 00:00: CAPSULE(S) [place] 00 BY MOUTH Medical EVERY [place] MORNING. QUEtiapine 2-0 Yes 100mg Take 100 [place] 100 mg 9-16 mg by ity of tablet 00:00: mouth at [place] 00 bedtime. Medical Branch atomoxetine 2021-0 Yes TAKE ONE Un [place] 40 mg 9-16 (1) ity of capsule 00:00: CAPSULE(S) [place] 00 BY MOUTH Medical EVERY [place] MORNING. QUEtiapine 2022-0 Yes 100mg Take 100 [place] 100 mg 9-16 mg by ity of tablet 00:00: mouth at [place] [address] bedtime. Medical Branch atomoxetine 2021-0 Yes TAKE ONE [place] 40 mg 9-16 (1) ity of capsule 00:00: CAPSULE(S) [place] 00 BY MOUTH Medical EVERY [place] MORNING. QUEtiapine 2-0 Yes 100mg Take 100 [place] 100 mg 9-16 mg by ity of tablet 00:00: mouth at [place] 00 bedtime. Medical Branch atomoxetine 2021-0 Yes TAKE ONE [place] 40 mg 9-16 (1) ity of capsule 00:00: CAPSULE(S) [place] 00 BY MOUTH Medical EVERY [place] MORNING. QUEtiapine 2-0 Yes 100mg Take 100 [place] 100 mg 9-16 mg by ity of tablet 00:00: mouth at [place] 00 bedtime. Medical Branch atomoxetine 2021-0 Yes TAKE ONE [place] 40 mg 9-16 (1) ity of capsule 00:00: CAPSULE(S) [place] 00 BY MOUTH Medical EVERY [place] MORNING. QUEtiapine 2-0 Yes 100mg Take 100 [place] 100 mg 9-16 mg by ity of tablet 00:00: mouth at [place] [address] bedtime. Medical Branch atomoxetine 2021-0 Yes TAKE ONE [place] 40 mg 9-16 (1) ity of capsule 00:00: CAPSULE(S) [place] 00 BY MOUTH Medical EVERY [place] MORNING. QUEtiapine 2-0 Yes 100mg Take 100 [place] 100 mg 9-16 mg by ity of tablet 00:00: mouth at [place] [address] bedtime. Medical Branch atomoxetine 2021-0 Yes TAKE ONE [place] 40 mg 9-16 (1) ity of capsule 00:00: CAPSULE(S) [place] 00 BY MOUTH Medical EVERY [place] MORNING. QUEtiapine 2-0 Yes 100mg Take 100 [place] 100 mg 9-16 mg by ity of tablet 00:00: mouth at [place] [address] bedtime. Medical Branch atomoxetine 2021-0 Yes TAKE ONE [place] 40 mg 9-16 (1) ity of capsule 00:00: CAPSULE(S) [place] 00 BY MOUTH Medical EVERY [place] MORNING. QUEtiapine 2022-0 Yes 100mg Take 100 [place] 100 mg 9-16 mg by ity of tablet 00:00: mouth at [place] [address] bedtime. Medical Branch atomoxetine 2021-0 Yes TAKE ONE [place] 40 mg 9-16 (1) ity of capsule 00:00: CAPSULE(S) [place] 00 BY MOUTH [facility] EVERY [place] MORNING. QUEtiapine 2-0 Yes 100mg Take 100 [place] 100 mg 9-16 mg by ity of tablet 00:00: mouth at [place] [address] bedtime. Medical Branch atomoxetine 2021-0 Yes TAKE ONE [place] 40 mg 9-16 (1) ity of capsule 00:00: CAPSULE(S) [place] 00 BY [facility] MORNING. QUEtiapine 2-0 Yes 100mg Take 100 [place] 100 mg 9-16 mg by ity of tablet 00:00: mouth at [place] [address] bedtime. Medical Branch atomoxetine 0 Yes TAKE ONE [place] 40 mg 9-16 (1) ity of capsule 00:00: CAPSULE(S) [place] 00 BY [facility] MORNING. QUEtiapine 2021-0 Yes 100mg Take 100 [place] 100 mg 9-16 mg by ity of tablet 00:00: mouth at [place] [address] bedtime. Medical Branch atomoxetine 2021-0 Yes TAKE ONE [place] 40 mg 9-16 (1) ity of capsule 00:00: CAPSULE(S) [place] 00 BY [facility] MORNING. QUEtiapine 2021-0 Yes 100mg Take 100 [place] 100 mg 9-16 mg by ity of tablet 00:00: mouth at [place] [address] bedtime. Medical Branch atomoxetine 2021-0 Yes TAKE ONE [place] 40 mg 9-16 (1) ity of capsule 00:00: CAPSULE(S) [place] 00 BY [facility] MORNING. QUEtiapine 2-0 Yes 100mg Take 100 [place] 100 mg 9-16 mg by ity of tablet 00:00: mouth at [place] [address] bedtime. Medical Branch atomoxetine 2021-0 Yes TAKE ONE [place] 40 mg 9-16 (1) ity of capsule 00:00: CAPSULE(S) [place] 00 BY [facility] MORNING. QUEtiapine 2-0 Yes 100mg Take 100 [place] 100 mg 9-16 mg by ity of tablet 00:00: mouth at [place] [address] bedtime. Medical Branch miconazole 2021-0 Yes [id number] 100mg Insert 1 Univers 100 mg 2-16 Suppositor ity of vaginal 00:00: y into [place] suppository 00 vagina at [facility] bedtime. Branch miconazole 2021-0 Yes [id number] 100mg Insert 1 Univers 100 mg 2-16 Suppositor ity of vaginal 00:00: y into [place] suppository 00 vagina at [facility] bedtime. Branch miconazole 2021-0 Yes [id number] 100mg Insert 1 Univers 100 mg 2-16 Suppositor ity of vaginal 00:00: y into [place] suppository 00 vagina at [facility] bedtime. Branch miconazole 2021-0 2022- No [id number] 100mg Insert 1 Univers 100 mg 2-16 10-10 Suppositor ity of vaginal 00:00: 00:00 y into [place] suppository 00 :00 vagina at [facility] bedtime. Branch miconazole 2021-0 2022- No [id number] 100mg Insert 1 Univers 100 mg 2-16 10-10 Suppositor ity of vaginal 00:00: 00:00 y into [place] suppository 00 :00 vagina at [facility] bedtime. Branch hydrOXYzine Yes TAKE ONE [place] 25 mg 2-05 (1) ity of tablet 00:00: TABLET(S) BY MOUTH Medical THREE Branch TIMES A DAY NEEDED FOR ANXIETY/PA CLEMENCIA. hydrOXYzine Yes TAKE ONE [place] 25 mg 2-05 (1) ity of tablet 00:00: TABLET(S) BY MOUTH Medical THREE Branch TIMES A DAY NEEDED FOR ANXIETY/PA CLEMENCIA. hydrOXYzine Yes TAKE ONE [place] 25 mg 2-05 (1) ity of tablet 00:00: TABLET(S) BY MOUTH Medical THREE Branch TIMES A DAY NEEDED FOR ANXIETY/PA CLEMENCIA. hydrOXYzine Yes TAKE ONE [place] 25 mg 2-05 (1) ity of tablet 00:00: TABLET(S) BY MOUTH Medical THREE Branch TIMES A DAY NEEDED FOR ANXIETY/PA CLEMENCIA. hydrOXYzine Yes TAKE ONE [place] 25 mg 2-05 (1) ity of tablet 00:00: TABLET(S) BY MOUTH Medical THREE Branch TIMES A DAY NEEDED FOR ANXIETY/PA CLEMENCIA. hydrOXYzine 2022-0 Yes TAKE ONE [place] 25 mg 2-05 (1) ity of tablet 00:00: TABLET(S) 00 BY MOUTH Medical THREE Branch TIMES A DAY NEEDED FOR ANXIETY/PA CLEMENCIA. hydrOXYzine 2021-0 Yes TAKE ONE [place] 25 mg 2-05 (1) ity of tablet 00:00: TABLET(S) [place] 00 BY MOUTH Medical THREE Branch TIMES A DAY NEEDED FOR ANXIETY/PA CLEMENCIA. hydrOXYzine 2021-0 Yes TAKE ONE [place] 25 mg 2-05 (1) ity of tablet 00:00: TABLET(S) [place] 00 BY MOUTH Medical THREE Branch TIMES A DAY NEEDED FOR ANXIETY/PA CLEMENCIA. hydrOXYzine 2021-0 Yes TAKE ONE [place] 25 mg 2-05 (1) ity of tablet 00:00: TABLET(S) BY MOUTH Medical THREE Branch TIMES A DAY NEEDED FOR ANXIETY/PA CLEMENCIA. hydrOXYzine 2021-0 Yes TAKE ONE [place] 25 mg 2-05 (1) ity of tablet 00:00: TABLET(S) BY MOUTH Medical THREE Branch TIMES A DAY NEEDED FOR ANXIETY/PA CLEMENCIA. hydrOXYzine 2021-0 Yes TAKE ONE [place] 25 mg 2-05 (1) ity of tablet 00:00: TABLET(S) BY MOUTH Medical THREE Branch TIMES A DAY NEEDED FOR ANXIETY/PA CLEMENCIA. hydrOXYzine 2021-0 Yes TAKE ONE [place] 25 mg 2-05 (1) ity of tablet 00:00: TABLET(S) BY MOUTH Medical THREE Branch TIMES A DAY NEEDED FOR ANXIETY/PA CLEMENCIA. hydrOXYzine 2021-0 Yes TAKE ONE [place] 25 mg 2-05 (1) ity of tablet 00:00: TABLET(S) 00 BY MOUTH Medical THREE Branch TIMES A DAY NEEDED FOR ANXIETY/PA CLEMENCIA. hydrOXYzine 2021-0 Yes TAKE ONE [place] 25 mg 2-05 (1) ity of tablet 00:00: TABLET(S) 00 BY MOUTH Medical THREE Branch TIMES A DAY NEEDED FOR ANXIETY/PA CLEMENCIA. hydrOXYzine 2021-0 Yes TAKE ONE [place] 25 mg 2-05 (1) ity of tablet 00:00: TABLET(S) 00 BY MOUTH Medical THREE Branch TIMES A DAY NEEDED FOR ANXIETY/PA CLEMENCIA. hydrOXYzine 2021-0 Yes TAKE ONE [place] 25 mg 2-05 (1) ity of tablet 00:00: TABLET(S) BY MOUTH Medical THREE Branch TIMES A DAY NEEDED FOR ANXIETY/PA CLEMENCIA. hydrOXYzine 2021-0 Yes TAKE ONE Un caleb 25 mg 2-05 (1) ity of tablet 00:00: TABLET(S) [place] 00 BY MOUTH Medical THREE Branch TIMES A DAY NEEDED FOR ANXIETY/PA CLEMENCIA. hydrOXYzine 2021-0 Yes TAKE ONE Un caleb 25 mg 2-05 (1) ity of tablet 00:00: TABLET(S) BY MOUTH Medical THREE Branch TIMES A DAY NEEDED FOR ANXIETY/PA CLEMENCIA. hydrOXYzine 2021-0 Yes TAKE ONE Un c[facility] 25 mg 2-05 (1) ity of tablet 00:00: TABLET(S) BY MOUTH Medical THREE Branch TIMES A DAY NEEDED FOR ANXIETY/PA CLEMENCIA. hydrOXYzine 2021-0 Yes TAKE ONE Un c[facility] 25 mg 2-05 (1) ity of tablet 00:00: TABLET(S) BY MOUTH Medical THREE Branch TIMES A DAY NEEDED FOR ANXIETY/PA CLEMENCIA. hydrOXYzine 2021-0 Yes TAKE ONE Un caleb 25 mg 2-05 (1) ity of tablet 00:00: TABLET(S) BY MOUTH Medical THREE Branch TIMES A DAY NEEDED FOR ANXIETY/PA CLEMENCIA. hydrOXYzine 2021-0 Yes TAKE ONE Un c[facility] 25 mg 2-05 (1) ity of tablet 00:00: TABLET(S) BY MOUTH Medical THREE Branch TIMES A DAY NEEDED FOR ANXIETY/PA CLEMENCIA. hydrOXYzine 2021-0 Yes TAKE ONE Un [facility] 25 mg 2-05 (1) ity of tablet 00:00: TABLET(S) 00 BY MOUTH Medical THREE Branch TIMES A DAY NEEDED FOR ANXIETY/PA CLEMENCIA. hydrOXYzine 2021-0 Yes TAKE ONE Un c[facility] 25 mg 2-05 (1) ity of tablet 00:00: TABLET(S) 00 BY MOUTH Medical THREE Branch TIMES A DAY NEEDED FOR ANXIETY/PA CLEMENCIA. hydrOXYzine 2021-0 Yes TAKE ONE Un [facility] 25 mg 2-05 (1) ity of tablet 00:00: TABLET(S) BY MOUTH Medical THREE Branch TIMES A DAY NEEDED FOR ANXIETY/PA CLEMENCIA. hydrOXYzine 2-0 Yes TAKE ONE Un [facility] 25 mg 2-05 (1) ity of tablet 00:00: TABLET(S) BY MOUTH Medical THREE Branch TIMES A DAY NEEDED FOR ANXIETY/PA CLEMENCIA. hydrOXYzine 2021-0 Yes TAKE ONE Un [facility] 25 mg 2-05 (1) ity of tablet 00:00: TABLET(S) BY MOUTH Medical THREE Branch TIMES A DAY NEEDED FOR ANXIETY/PA CLEMENCIA. hydrOXYzine 2021-0 Yes TAKE ONE Un [facility] 25 mg 2-05 (1) ity of tablet 00:00: TABLET(S) 00 BY MOUTH Medical THREE Branch TIMES A DAY NEEDED FOR ANXIETY/PA CLEMENCIA. QUEtiapine 2021-0 Yes 50mg Take 50 mg U nivers 50 mg 2-05 by mouth ity of tablet 00:00: at [place] [address] bedtime. Medical Branch hydrOXYzine 2021-0 Yes TAKE ONE Un caleb 25 mg 2-05 (1) ity of tablet 00:00: TABLET(S) BY MOUTH Medical THREE Branch TIMES A DAY NEEDED FOR ANXIETY/PA CLEMENCIA. buPROPion 2021-0 Yes TAKE ONE Univ ers SR 150 mg 2-05 (1) ity of SR tablet 00:00: TABLET(S) [place] 00 BY MOUTH Medical ONCE A DAY Branch IN THE MORNING. mirtazapine 2022-0 Yes 30mg Take 30 mg Univers 30 mg 2-05 by mouth ity of tablet 00:00: at [place] [address] bedtime. Medical Branch QUEtiapine 2-0 Yes 50mg Take 50 mg U nivers 50 mg 2-05 by mouth ity of tablet 00:00: at [place] [address] bedtime. Medical Branch hydrOXYzine 2021-0 Yes TAKE ONE Un c[facility] 25 mg 2-05 (1) ity of tablet 00:00: TABLET(S) BY MOUTH Medical THREE Branch TIMES A DAY NEEDED FOR ANXIETY/PA CLEMENCIA. buPROPion 2-0 Yes TAKE ONE Univ ers SR 150 mg 2-05 (1) ity of SR tablet 00:00: TABLET(S) [place] 00 BY MOUTH Medical ONCE A DAY Branch IN THE MORNING. mirtazapine 2022-0 Yes 30mg Take 30 mg Univers 30 mg 2-05 by mouth ity of tablet 00:00: at [place] [address] bedtime. Medical Branch QUEtiapine Yes 50mg Take 50 mg U nivers 50 mg 2-05 by mouth ity of tablet 00:00: at [place] [address] bedtime. Medical Branch hydrOXYzine Yes TAKE ONE Un caleb 25 mg 2-05 (1) ity of tablet 00:00: TABLET(S) [place] 00 BY MOUTH Medical THREE Branch TIMES A DAY NEEDED FOR ANXIETY/PA CLEMENCIA. buPROPion Yes TAKE ONE Univ ers SR 150 mg 2-05 (1) ity of SR tablet 00:00: TABLET(S) [place] 00 BY MOUTH Medical ONCE A DAY Branch IN THE MORNING. mirtazapine Yes 30mg Take 30 mg Univers 30 mg 2-05 by mouth ity of tablet 00:00: at [place] [address] bedtime. Medical Branch QUEtiapine Yes 50mg Take 50 mg U nivers 50 mg 2-05 by mouth ity of tablet 00:00: at [place] [address] bedtime. Medical Branch hydrOXYzine Yes TAKE ONE Un caleb 25 mg 2-05 (1) ity of tablet 00:00: TABLET(S) [place] 00 BY MOUTH Medical THREE Branch TIMES A DAY NEEDED FOR ANXIETY/PA CLEMENCIA. buPROPion Yes TAKE ONE Univ ers SR 150 mg 2-05 (1) ity of SR tablet 00:00: TABLET(S) [place] 00 BY MOUTH Medical ONCE A DAY Branch IN THE MORNING. mirtazapine Yes 30mg Take 30 mg Univers 30 mg 2-05 by mouth ity of tablet 00:00: at [place] [address] bedtime. Medical Branch QUEtiapine 2021- No 50mg Take 50 mg Univers 50 mg 2-05 10-10 by mouth ity of tablet 00:00: 00:00 at [place] 00 :00 bedtime. Medical Branch buPROPion 2021- No TAKE ONE Uni vers SR 150 mg 2-05 10-10 (1) ity of SR tablet 00:00: 00:00 TABLET(S) [place] 00 :00 BY MOUTH Medical ONCE A DAY Branch IN THE MORNING. mirtazapine 2021-0 2021- No 30mg Take 30 mg Univers 30 mg 2-05 10-10 by mouth ity of tablet 00:00: 00:00 at [place] 00 :00 bedtime. Medical Branch QUEtiapine 2021- No 50mg Take 50 mg Univers 50 mg 08-02 10-10 by mouth ity of tablet 00:00: 00:00 at [place] 00 :00 bedtime. Medical Branch buPROPion 2021- No TAKE ONE Uni vers SR 150 mg 08-02-10 (1) ity of SR tablet 00:00: 00:00 TABLET(S) [place] 00 :00 BY MOUTH Medical ONCE A DAY Branch IN THE MORNING. mirtazapine 2021- No 30mg Take 30 mg Univers 30 mg 08-02-10 by mouth ity of tablet 00:00: 00:00 at [place] 00 :00 bedtime. Medical Branch Quetiapine Quetiapine Yes Mj TAKE ONE Common Fumarate Fumarate Win (1) Spirit TABLET(S) - [facility] BY MOUTH AT [facility] BEDTIME. [facility] Center Mirtazapine Mirtazapine Yes Mj DISSOLVE [facility] Win ONE (1) Spirit TABLET(S) - [facility] BY MOUTH St ON THE [facility] [place] ONCE A DAY Center AT BEDTIME. Sertraline Sertraline Yes Mj TAKE FOUR Common HCl HCl Win (4) ML(S) Spirit BY MOUTH - [facility] DAILY. [facility] Sertraline Sertraline Yes Mj 1 tablet Common HCl HCl Win Spirit - [facility] Mirtazapine Mirtazapine No Mirtazapin 15 MG 15 MG e 15 MG QUEtiapine QUEtiapine No QUEtiapine Fumarate 25 Fumarate 25 Fumarate MG MG 25 MG Sertraline Sertraline No Sertraline HCl 20 HCl 20 HCl 20 MG/ML MG/ML MG/ML Sertraline Sertraline No 1{table QD Sertraline HCl 50 MG HCl 50 MG t} HCl 50 MG Mirtazapine Mirtazapine No Mirtazapin 15 MG 15 MG e 15 MG QUEtiapine QUEtiapine No QUEtiapine Fumarate 25 Fumarate 25 Fumarate MG MG 25 MG Sertraline Sertraline No Sertraline HCl 20 HCl 20 HCl 20 MG/ML MG/ML MG/ML Sertraline Sertraline No 1{table QD Sertraline HCl 50 MG HCl 50 MG t} HCl 50 MG Immunizations Ordered Filled Immunization Date Status Comments [facility] e Immunization Name Name HPV9 2022-10-06 Completed University of 00:00:00 [facility] TDAP 2022-10-06 Completed University of 00:00:00 [facility] Branch HPV9 2022-10-06 Completed University of 00:00:00 [facility] TDAP 2022-10-06 Completed University of 00:00:00 [facility] Branch HPV9 2022-10-06 Completed University of 00:00:00 [facility] Branch TDAP 2022-10-06 Completed University of 00:00:00 [place] [facility] HPV9 2022-10-06 Completed University of 00:00:00 [facility] TDAP 2022-10-06 Completed University of 00:00:00 [facility] HPV9 2022-10-06 Completed University of 00:00:00 [facility] TDAP 2022-10-06 Completed University of 00:00:00 [facility] HPV9 2022-06-09 Completed University of 00:00:00 [facility] HPV9 2022-06-09 Completed University of 00:00:00 [facility] Branch HPV9 2022-06-09 Completed University of 00:00:00 [facility] Branch HPV9 2022-06-09 Completed University of 00:00:00 [facility] HPV9 2022-06-09 Completed University of 00:00:00 [facility] HPV9 2022-06-09 Completed University of 00:00:00 [facility] HPV9 2022-06-09 Completed University of 00:00:00 [facility] Branch HPV9 2022-06-09 Completed University of 00:00:00 [place] [facility] HPV9 2022-06-09 Completed University of 00:00:00 [place] [facility] HPV9 2022-06-09 Completed University of 00:00:00 [facility] HPV9 2022-06-09 Completed University of 00:00:00 [facility] HPV9 2022-06-09 Completed University of 00:00:00 [facility] HPV9 2022-06-09 Completed University of 00:00:00 [facility] Branch HPV9 2022-06-09 Completed University of 00:00:00 [facility] Branch HPV9 2022-06-09 Completed University of 00:00:00 [facility] HPV9 2022-06-09 Completed University of 00:00:00 [place] [facility] HPV9 2022-06-09 Completed University of 00:00:00 [place] [facility] HPV9 2022-04-06 Completed University of 00:00:00 [place] [facility] HPV9 2022-04-06 Completed University of 00:00:00 [place] [facility] HPV9 2022-04-06 Completed University of 00:00:00 [place] [facility] HPV9 2022-04-06 Completed University of 00:00:00 [place] [facility] HPV9 2022-04-06 Completed University of 00:00:00 [place] [facility] HPV9 2022-04-06 Completed University of 00:00:00 [place] [facility] HPV9 2022-04-06 Completed University of 00:00:00 [place] [facility] HPV9 2022-04-06 Completed University of 00:00:00 [place] [facility] HPV9 2022-04-06 Completed University of 00:00:00 [place] [facility] HPV9 2022-04-06 Completed University of 00:00:00 [place] [facility] HPV9 2022-04-06 Completed University of 00:00:00 [place] [facility] HPV9 2022-04-06 Completed University of 00:00:00 [place] [facility] HPV9 2022-04-06 Completed University of 00:00:00 [place] [facility] HPV9 2022-04-06 Completed University of 00:00:00 [place] [facility] HPV9 2022-04-06 Completed University of 00:00:00 [place] [facility] HPV9 2022-04-06 Completed University of 00:00:00 [place] [facility] HPV9 2022-04-06 Completed University of 00:00:00 [place] [facility] HPV9 2022-04-06 Completed University of 00:00:00 [place] [facility] HPV9 2022-04-06 Completed University of 00:00:00 [place] [facility] HPV9 2022-04-06 Completed University of 00:00:00 [place] [facility] HPV9 2022-04-06 Completed University of 00:00:00 [place] [facility] HPV9 2022-04-06 Completed University of 00:00:00 [place] [facility] HPV9 2022-04-06 Completed University of 00:00:00 [place] [facility] HPV9 2022-04-06 Completed University of 00:00:00 [place] [facility] HPV9 2022-04-06 Completed University of 00:00:00 [place] [facility] HPV9 2022-04-06 Completed University 00:00:00 [facility] HPV9 2022-04-06 Completed University 00:00:00 [facility] Influenza Virus 2022-01-26 Completed Universit y of Vaccine Quad IM, 00:00:00 [place] Me dical Preserv and ABX Branch Free 6 MO-64 YRS Influenza Virus 2022-01-26 Completed Universit y of [facility] IM, 00:00:00 [place] Me dical Preserv and ABX Branch Free 6 MO-64 YRS Influenza Virus 2022-01-26 Completed Universit y of [facility], 00:00:00 [place] Me dical Preserv and ABX Branch Free 6 MO-64 YRS Influenza Virus 2022-01-26 Completed Universit y of [facility], 00:00:00 [place] Me dical Preserv and ABX Branch Free 6 MO-64 YRS Influenza Virus 2022-01-26 Completed Universit y of [facility], 00:00:00 [place] Me dical Preserv and ABX Branch Free 6 MO-64 YRS Influenza Virus 2022-01-26 Completed Universit y of [facility], 00:00:00 [place] Me dical Preserv and ABX Branch Free 6 MO-64 YRS Influenza Virus 2022-01-26 Completed Universit y of [facility] IM, 00:00:00 [place] Me dical Preserv and ABX Branch Free 6 MO-64 YRS Influenza Virus 2022-01-26 Completed Universit y of [facility], 00:00:00 [place] Me dical Preserv and ABX Branch Free 6 MO-64 YRS Influenza Virus 2022-01-26 Completed Universit y of [facility], 00:00:00 [place] Me dical Preserv and ABX Branch Free 6 MO-64 YRS Influenza Virus 2022-01-26 Completed Universit y of [facility], 00:00:00 [place] Me dical Preserv and ABX Branch Free 6 MO-64 YRS Influenza Virus 2022-01-26 Completed Universit y of [facility], 00:00:00 [place] Me dical Preserv and ABX Branch Free 6 MO-64 YRS Influenza Virus 2022-01-26 Completed Universit y of [facility], 00:00:00 [place] Me dical Preserv and ABX Branch Free 6 MO-64 YRS Influenza Virus 2022-01-26 Completed Universit y of [facility], 00:00:00 [place] Me dical Preserv and ABX Branch Free 6 MO-64 YRS Influenza Virus 2022-01-26 Completed Universit y of [facility], 00:00:00 [place] Me dical Preserv and ABX Branch Free 6 MO-64 YRS Influenza Virus 2022-01-26 Completed Universit y of [facility], 00:00:00 [place] Me dical Preserv and ABX Branch Free 6 MO-64 YRS Influenza Virus 2022-01-26 Completed Universit y of [facility], 00:00:00 [place] Me dical Preserv and ABX Branch Free 6 MO-64 YRS Influenza Virus 2022-01-26 Completed Universit y of [facility], 00:00:00 [place] Me dical Preserv and ABX Branch Free 6 MO-64 YRS Influenza Virus 2022-01-26 Completed Universit y of [facility], 00:00:00 [place] Me dical Preserv and ABX Branch Free 6 MO-64 YRS Influenza Virus 2022-01-26 Completed Universit y of [facility], 00:00:00 [place] Me dical Preserv and ABX Branch Free 6 MO-64 YRS Influenza Virus 2022-01-26 Completed Universit y of [facility], 00:00:00 [place] Me dical Preserv and ABX Branch Free 6 MO-64 YRS Influenza Virus 2022-01-26 Completed Universit y of [facility]ine [facility], 00:00:00 [place] Me dical Preserv and ABX Branch Free 6 MO-64 YRS Influenza Virus 2022-01-26 Completed Universit y of Vaccine [facility], 00:00:00 [place] Me dical Preserv and ABX Branch Free 6 MO-64 YRS Influenza Virus 2022-01-26 Completed Universit y of [facility], 00:00:00 [place] Me dical Preserv and ABX Branch Free 6 MO-64 YRS Influenza Virus 2022-01-26 Completed Universit y of [facility], 00:00:00 [place] Me dical Preserv and ABX Branch Free 6 MO-64 YRS Influenza Virus 2022-01-26 Completed Universit y of [facility], 00:00:00 [place] Me dical Preserv and ABX Branch Free 6 MO-64 YRS Influenza Virus 2022-01-26 Completed Universit y of Vaccine [facility] IM, 00:00:00 [place] Me dical Preserv and ABX Branch Free 6 MO-64 YRS Influenza Virus 2022-01-26 Completed Universit y of Vaccine [facility] IM, 00:00:00 [place] Me dical Preserv and ABX Branch Free 6 MO-64 YRS Afluria single dose Afluria single dose 2019-03-21 Completed [facility] - 10:37:00 [facility] Afluria single dose Afluria single dose 2019-03-21 Completed [facility] - 10:37:00 [facility] Vital Signs Vital Name Observation Time Observation Value Comments Source Systolic blood 2022-12-01 11:01:00 132 mm[Hg] Univer sity of pressure [facility] Diastolic blood 2022-12-01 11:01:00 102 mm[Hg] Unive rsity of [facility] Heart rate 2022-12-01 11:01:00 117 /min Universi ty [facility] Respiratory rate 2022-12-01 11:01:00 18 /min [facility] Body height 2022-12-01 11:01:00 152.4 cm Universi ty [facility] Body weight 2022-12-01 11:01:00 59.421 kg Universi ty [facility] BMI 2022-12-01 11:01:00 25.58 kg/m2 Universi [facility] Oxygen saturation in 2022-12-01 11:01:00 99 /min [facility] Arterial blood by [facility] Pulse oximetry Branch Systolic blood 2022-12-01 06:33:00 112 mm[Hg] Univer sity of pressure [facility] Diastolic blood 2022-12-01 06:33:00 81 mm[Hg] Unive rsity of pressure [facility] Heart rate 2022-12-01 06:33:00 113 /min Universi ty of [facility] Body temperature 2022-12-01 06:33:00 36.72 [facility] Res[facility] rate 2022-12-01 06:33:00 22 /min [facility] Body height 2022-12-01 06:33:00 152.4 cm Universi ty [facility] Body weight 2022-12-01 06:33:00 59.829 kg Universi ty of [facility] BMI 2022-12-01 06:33:00 25.76 kg/m2 Universi ty of [place] [facility] Oxygen saturation in 2022-12-01 06:33:00 100 /min University of Arterial blood by [facility] [place] [facility] Pulse oximetry Branch Systolic blood 2022-10-06 19:18:00 103 mm[Hg] Univer sity of pressure [place] [facility] Diastolic blood 2022-10-06 19:18:00 71 mm[Hg] Unive rsity of pressure [place] [facility] Heart rate 2022-10-06 19:18:00 102 /min Universi ty of [place] [facility] Body temperature 2022-10-06 19:18:00 37.06 Whitney Univ ersity of [place] [facility] Body height 2022-10-06 19:18:00 152.4 cm Universi ty of [place] [facility] Body weight 2022-10-06 19:18:00 62.143 kg Universi ty of [place] [facility] BMI 2022-10-06 19:18:00 26.76 kg/m2 Universi ty of [place] [facility] Systolic blood 2022-08-06 19:21:00 117 mm[Hg] Univer sity of pressure [place] [facility] Diastolic blood 2022-08-06 19:21:00 76 mm[Hg] Unive rsity of pressure [place] [facility] Heart rate 2022-08-06 19:21:00 90 /min Universi ty of [place] [facility] Body temperature 2022-08-06 19:21:00 37.67 Whitney Univ ersity of [place] [facility] Respiratory rate 2022-08-06 19:21:00 18 /min Univ ersity of [place] [facility] Body height 2022-08-06 19:21:00 152.4 cm Universi ty of [place] [facility] Body weight 2022-08-06 19:21:00 63.549 kg Universi ty of [place] [facility] BMI 2022-08-06 19:21:00 27.36 kg/m2 Universi ty of [place] [facility] Oxygen saturation in 2022-08-06 19:21:00 98 /min University of Arterial blood by [facility] [place] [facility] Pulse oximetry Branch Systolic blood 2022-07-23 16:20:00 105 mm[Hg] Univer sity of pressure [place] [facility] Diastolic blood 2022-07-23 16:20:00 72 mm[Hg] Unive rsity of pressure [place] [facility] Heart rate 2022-07-23 16:20:00 72 /min Universi ty of [place] [facility] Body temperature 2022-07-23 16:20:00 36.78 Whitney Univ ersity of [place] [facility] Body height 2022-07-23 16:20:00 152.4 cm Universi ty of [place] [facility] Body weight 2022-07-23 16:20:00 64.411 kg Universi ty of [place] [facility] BMI 2022-07-23 16:20:00 27.73 kg/m2 Universi ty of [place] [facility] Oxygen saturation in 2022-07-23 16:20:00 98 /min University of Arterial blood by [facility] [place] [facility] Pulse oximetry Branch Systolic blood 2022-06-09 16:36:00 106 mm[Hg] Univer sity of pressure [place] [facility] Diastolic blood 2022-06-09 16:36:00 73 mm[Hg] Unive rsity of pressure [place] [facility] Heart rate 2022-06-09 16:36:00 80 /min Universi ty of [place] [facility] Body temperature 2022-06-09 16:36:00 36.67 [place] Univ ersity of [place] [facility] Body height 2022-06-09 16:36:00 152.4 cm Universi ty of [place] [facility] Body weight 2022-06-09 16:36:00 67.042 kg Universi ty of [place] [facility] BMI 2022-06-09 16:36:00 28.87 kg/m2 Universi ty of [place] [facility] Systolic blood 2022-05-14 20:44:00 106 mm[Hg] Univer sity of pressure [place] [facility] Diastolic blood 2022-05-14 20:44:00 72 mm[Hg] Unive rsity of pressure [place] [facility] Heart rate 2022-05-14 20:44:00 77 /min Universi ty of [place] [facility] Body temperature 2022-05-14 20:44:00 36.44 Whitney Univ ersity of [place] [facility] Respiratory rate 2022-05-14 20:44:00 18 /min Univ ersity of [place] [facility] Body height 2022-05-14 20:44:00 152.4 cm Universi ty of [place] [facility] Body weight 2022-05-14 20:44:00 68.947 kg Universi ty of [place] [facility] BMI 2022-05-14 20:44:00 29.69 kg/m2 Universi ty of [place] [facility] Systolic blood 2022-04-06 14:39:00 114 mm[Hg] Univer sity of pressure [place] [facility] Diastolic blood 2022-04-06 14:39:00 77 mm[Hg] Unive rsity of pressure [place] [facility] Heart rate 2022-04-06 14:39:00 91 /min Universi ty of [place] [facility] Body temperature 2022-04-06 14:39:00 36.5 Whitney Univ ersity of [place] [facility] Respiratory rate 2022-04-06 14:39:00 16 /min Univ ersity of [place] [facility] Body height 2022-04-06 14:39:00 152.4 cm Universi ty of [place] [facility] Body weight 2022-04-06 14:39:00 68.493 kg Universi ty of [place] [facility] BMI 2022-04-06 14:39:00 29.49 kg/m2 Universi ty of [place] [facility] Systolic blood 2021-08-11 15:43:00 104 mm[Hg] Univer sity of pressure [place] [facility] Diastolic blood 2021-08-11 15:43:00 67 mm[Hg] Unive rsity of pressure [place] [facility] Heart rate 2021-08-11 15:43:00 91 /min Universi ty of [place] [facility] Body temperature 2021-08-11 15:43:00 36.78 Whitney Univ ersity of [place] [facility] Respiratory rate 2021-08-11 15:43:00 18 /min Univ ersity of [place] [facility] Body height 2021-08-11 15:43:00 152.4 cm Universi ty of [place] [facility] Body weight 2021-08-11 15:43:00 65.318 kg Universi ty of [place] [facility] BMI 2021-08-11 15:43:00 28.12 kg/m2 Universi ty of [place] [facility] Procedures Procedure Date / Time Performing Clinician Source Performed NOTICE OF PRIVACY 2022-12-01 06:28:10 Doctor Unassigned, No Univ ersity [facility] PRACTICES Name Medical Branch CONSENT/REFUSAL FOR 2022-12-01 06:26:53 [facility] Medical Branch TDAP VACCINE, >11 YRS, 2022-10-06 19:27:45 Nayeli Robbins [facility] ASSIGNMENT OF BENEFITS 2022-10-06 19:09:24 Doctor Unassigned, No [facility] GARDASIL 9 (HPV 9V) 2022-10-06 19:08:07 Nayeli Robbins [facility] VACCINE [facility] FREE T4 2022-08-06 20:00:00 [facility] THYROID STIMULATING 2022-08-06 20:00:00 [facility] HORMONE [facility] COMP. METABOLIC PANEL 2022-08-06 20:00:00 [facility] ([id number]) [facility] LIPID PANEL 2022-08-06 20:00:00 [facility] ([id number])(TOTAL Medical [place] CHOLESTEROL, TRIGLYCERIDES, HDL) CBC WITH DIFF 2022-08-06 20:00:00 [facility] GLYCOSYLATED HEMOGLOBIN 2022-08-06 20:00:00 [facility] (A1C) [facility] URINALYSIS 2022-08-06 20:00:00 [facility] POCT TEST 2022-07-23 00:00:00 Tanesha Motley [facility] GARDASIL 9 (HPV 9V) 2022-06-09 16:37:26 Enmanuel [facility] VACCINE [facility] GARDASIL 9 (HPV 9V) 2022-04-06 15:25:33 Enmanuel [facility] VACCINE [facility] CONSENT/REFUSAL FOR 2022-04-06 14:28:51 Doctor Unassigned, No [facility] DIAGNOSIS AND TREATMENT [facility] Medical [place] ASSIGNMENT OF BENEFITS 2022-04-06 14:28:39 Doctor Unassigned, No [facility] Encounters Start End Encounter Admission Attending Care Care Encounter Source Date/Time Date/Time Type Type Clinicians Facility Department ID 2022-10-07 Outpatient [facility] [id number] [place] 15:31:07 [id number] [facility] 2022-10-07 Outpatient Win, STLMLC STLMLC [id number] [place] 08:24:00 [place] [id number] [facility] 2022-10-06 Outpatient [facility] [id number] [place] 17:47:31 [id number] Health 2022-10-01 Outpatient Win, STLMLC STLMLC [id number] [place] 10:54[place]00 [place] [id number] [facility] 2022-02-16 Outpatient Win, STLMLC STLMLC [id number] [place] 14:07[place]00 [place] [id number] [facility] 2021-07-23 Outpatient Win, STLMLC STLMLC [id number] [place] 13:17:34 [place] [id number] [facility] 2021-07-23 Outpatient Win, STLMLC STLMLC [id number] Common 11:51:28 [place] [id number] [facility] 2021-07-23 Outpatient Win, STLMLC STLMLC [id number] [place] 11:21[place]42 [place] [id number] [facility] 2021-07-23 Outpatient Win, STLMLC STLC [id number] Common 11:06:08 [place] [id number] [facility] 2021 Emergency [facility] [id number] Univers 13:06:51 ity [facility] 2023-02-04 2023-02-04 Outpatient [facility] [id number] Univers 13:00:00 13:00:00 GEMA marshall [facility] 2022-12-01 2022-12-01 Emergency X [facility] ERT [id number] Univers 05:57:00 06:46:00 ISAIAH marshall [facility] 2022-12-01 2022-12-01 Emergency [facility] [id number] Univers 05:57:00 06:46:00 Isaiah BARRON 350.1.13.10 ity [facility] 4.2.7.2.686 [facility] [phone] [place] [address] [place] 2022-12-01 2022-12-01 Emergency X GA [facility] ERT [id number] Univers 01:37:00 02:25:00 ISAIAH filomena [facility] 2022-12-01 2022-12-01 Emergency Ga [facility] 1.2.296.073 [id number] Univers 01:37:00 02:25:00 Isaiah BARRON 350.1.13.10 ity [facility] [place] [id number] [facility] [address] [place] 2022-11-05 2022-11-05 Patient Manuel [facility] 1.2.840.114 [id number] Univers 00:00:00 00:00:00 Secure [facility] 350.1.13.10 ity of [place] 4.2.7.2.686 Sumit as TORI?BLEA [id number] Sc sraah KNEY [address] [place] MEDICAL OFFICE [facility] 2022-10-06 2022-10-06 Outpatient R [facility] [id number] Univers 14:30:00 14:30:00 NIKI [facility] 2022-10-06 2022-10-06 Nurse Nurse, [facility] 1.2.840.114 [id number] Univers 14:30:00 14:30:00 Visit Niki Singer 350.1.13.10 ity of [facility] [place].2.7.2.[place] [facility] [id number] Sc sarah GONZALEZ [address] [facility] 2022-10-06 2022-10-06 Orders Doctor ADELINA 1.2.840.114 [id number] Univers 00:00:00 00:00:00 Only Unassigned, ABAD 350.1.13.10 ity of [place] [facility] 4.2.7.2.686 Sumit as [id number] [facility] [address] [place] 2022-10-05 2022-10-05 Outpatient R [facility] [id number] Univers 09:00:00 09:00:00 [facility] 2022-08-13 2022-08-13 Outpatient R [facility] [id number] Univers 14:00:00 14:00:00 ity of [facility] 2022-08-10 2022-08-10 Telephone [facility] 1.2.126.174 [id number] Univers 00:00:00 00:00:00 Gema BARRON 350.1.13.10 i ty of [place]2.[place] [id number] Sc dical NAL 0[address] [facility] 2022-08-06 2022-08-06 Stretch Box Tender 2, Adc Lab [facility] 1.2.840.114 [id number] Univers 14:15:00 14:30:00 Visit Gema Mahajan [place] 350.1.13.10 ity of [facility] 4.2.7.2.[place] [id number] [facility] 353 [facility] 2022-08-06 2022-08-06 Outpatient R [facility] [id number] Univers 13:00:00 13:50:39 [facility]22-[facility]-06 2022-08-06 Office [facility] 1.2.840.114 [id number] Univers 13:00:00 13:50:39 Visit Gema BARRON 350.1.13.10 i ty of [facility] 4.2.7.2.[place] [id number] Sc dichi NAL 0[address] [facility] 2022-07-27 2022-07-27 Case Enmanuel [facility] [id number] Univers 00:00:00 00:00:00 Management Niki BARRON 350.1.13.10 ity of [facility] 4.2.7.2.[place] [id number] Sc dical NAL 134 [facility] 2022-07-24 2022-07-24 Telephone Tolu [facility] 1.2.638.526 [id number] Univers 00:00:00 00:00:00 Tanesha A HEALTH 350.1.13.10 i ty of [place] 4.2.7.2.686 Sumit as TORI?BLEA [id number] Sc dical KNEY 044 [facility] OFFICE BUILDING 2022-07-24 2022-07-24 Patient Tolu [facility] 1.2.840.114 [id number] Univers 00:00:00 00:00:00 Secure Msg Tanesha Burgos HEALTH 350.1.13.10 ity of [facility] 4.2.7.2.686 Sumit as TORI?BLEA [id number] [facility] 044 [facility] OFFICE [facility] 2022-07-23 2022-07-23 Outpatient R TOLU [facility] [id number] Univers 11:30:00 11:31:10 TANESHA itfilomena [facility] 2022-07-23 2022-07-23 Stretch Box Tender Lab, Ang - Db [facility] 1.2.840.1 [id number] Univers 11:30:00 11:31:10 Visit Tanesha Motley HEALTH 350.1.13.10 ity of [facility] 4.2.7.2.686 Sumit as TORI?BLEA [id number] Sc sarah DENT 353 [facility] OFFICE BUILDING 2022-07-23 2022-07-23 Office [facility] 1.2.840.114 [id number] Univers 10:00:00 11:21:27 Visit Tanesha Burgos HEALTH 350.1.13.10 i ty of [place] 4.2.7.2.686 Sumit as TORI?BLEA [id number] Sc sarah DENT 044 [facility] OFFICE [facility] 2022-06-09 2022-06-09 Nurse Nurse, [facility] 1.2.840.114 [id number] Univers 10:30:00 10:36:32 Visit Niki Singer 350.1.13.10 ity of [facility] 4.2.7.2.[place] [id number] Sc sarah [facility] [address] [facility] 2022-06-09 2022-06-09 Outpatient Kera SINGER [facility] [id number] Univers 10:30:00 10:30:00 NIKI marshall [facility] 2022-06-08 2022-06-08 Outpatient R ENMANUEL [facility] [id number] Univers 09:00:00 09:00:00 NIKI marshall [facility] 2022-06-02 2022-06-02 Outpatient R DALE [facility] [id number] Univers 13:00:00 13:00:00 AVELINO marshall [facility] 2022-05-18 2022-05-18 Case [facility] 1.2.560.419 [id number] Univers 00:00:00 00:00:00 Management Nikizachary BARRON 350.1.13.10 ity of [place].2.[place] [id number] Sc dical NAL [address] [place] [address] 2022-05-14 2022-05-14 Office [facility] 1.2.535.834 [id number] Univers 15:45:00 16:15:00 Visit Niki BARRON 350.1.13.10 i ty of [place].7.2.[place] [id number] Sc dical NAL [address] [place] [address] 2022-05-14 2022-05-14 Outpatient R ENMANUEL [facility] [id number] Univers 15:45:00 15:48:07 NIKI marshall [facility] 2022-05-14 2022-05-14 Stretch Box Tender 2, Adc Lab [facility] 1.2.840.114 [id number] Univers 15:30:00 15:45:00 Visit Niki Singer 350.1.13.10 ity of [facility] 4.2.7.2.[place] [id number] Sc dical [facility] 353 [facility] 2022-05-13 2022-05-13 Telephone [facility] 1.2.840.114 [id number] Univers 00:00:00 00:00:00 Niki BARRON 350.1.13.10 i ty of [place].2.7.2.[place] [id number] Sc dical NAL [address] [place] [address] 2022-04-07 2022-04-07 Case [facility] 1.2.664.164 [id number] Univers 00:00:00 00:00:00 Management Niki BARRON 350.1.13.10 ity of [place].7.2.[place] [id number] Sc dical NAL 134 [facility] 2022-04-07 2022-04-07 Telephone Enmanuel [facility] 1.2.840.114 [id number] Univers 00:00:00 00:00:00 Niki BARRON 350.1.13.10 i ty of [facility] 4.2.7.2.[place] [id number] Sc dical NAL 134 [facility] 2022-04-06 2022-04-06 Stretch Box Tender 2, Adc Lab [facility] 1.2.840.114 [id number] Univers 10:15:00 10:30:00 Visit Niki Singer 350.1.13.10 ity of [place].7.2.686 [place] [id number] Sc dical NAL [address] [facility] 2022-04-06 2022-04-06 Office [facility] 1.2.397.982 [id number] Univers 09:30:00 10:16:08 Visit Niki BARRON 350.1.13.10 i ty of [place] 4.2.7.2.686 [place] [id number] Sc dical NAL [address] [facility] 2022-04-06 2022-04-06 Outpatient R ENMANUEL [facility] [id number] Univers 09:30:00 10:16:08 NIKI marshall [facility] 2022-04-06 2022-04-06 Orders Doctor ADELINA 1.2.840.114 [id number] Univers 00:00:00 00:00:00 Only Unassigned, ABAD 350.1.13.10 ity of [place] [facility] 4.2.7.2.686 Sumit as [id number] [address] 2022-04-02 2022-04-02 Outpatient R ENMANUEL [facility] [id number] Univers 08:45:00 08:45:00 NIKI marshall [facility] 2022-01-29 2022-01-29 (TEL) [facility] [id number] Co mmon 00:00:00 00:00:00 [facility] 2021-08-14 2021-08-14 Telephone Enmanuel [facility] 1.2.840.114 [id number] Univers 00:00:00 00:00:00 Niki BARRON 350.1.13.10 i ty of [facility] 4.2.7.2.[place] [id number] Sc dical NAL [address] [facility] 2021-08-13 2021-08-13 Case Enmanuel [facility] 1.2.322.365 [id number] Univers 00:00:00 00:00:00 Management Niki BARRON 350.1.13.10 ity of [facility] 4.2.7.2.[place] [id number] Sc dical NAL [address] [facility] 2021-08-11 2021-08-11 Stretch Box Tender 2, Adc Lab [facility] 1.2.840.114 [id number] Univers 10:45:00 10:45:00 Visit Niki Singer 350.1.13.10 ity of [facility] 4.2.7.2.[place] [id number] Sc dical LISA [address] [facility] 2021-08-11 2021-08-11 Outpatient R ENMANUEL [facility] [id number] Univers 09:30:00 10:32:53 NIKI marshall [facility] 2021-08-11 2021-08-11 Office Enmanuel NJRADHA 1.2.151.789 [id number] Univers 09:30:00 10:32:53 Visit Niki BARRON 350.1.13.10 i ty of [facility] 4.2.7.2.[place] [id number] Sc dical NAL [address] [place] [address] 2021-08-11 2021-08-11 Outpatient R ENMANUEL [facility] [id number] Univers 09:30:00 10:32:53 NIKI marshall [facility] 2021-08-11 2021-08-11 Orders Doctor SAHU 1.2.840.114 [id number] Univers 00:00:00 00:00:00 Only Unassigned, ABAD 350.1.13.10 [facility] 4.2.7.2.686 Sumit as [id number] [place] [address] [place] 2021-03-18 2021-03-18 (TEL) [facility] ST[facility] [id number] Co mmon 00:00:00 00:00:00 [facility] 2020-12-17 2020-12-17 Outpatient STLMLC STLMLC [id number] Common 00:00:00 00:00:00 [facility] 2020-12-10 2020-12-10 Outpatient MHIE MHIE [id number] Memoria 10:30:00 10:30:00 00 l Gulshan 2020-12-10 2020-12-10 Outpatient MHIE MHIE [id number] Memoria 10:30:00 10:30:00 00 l Gulshan 2020-03-13 2020-03-13 [facility] [id number] Common 10:10:00 10:10:[address] [facility] 2019-11-08 2019-11-08 Out[facility] [id number] Common 11:45:00 11:45:00 t Causes Spir it Drive [facility] 2019-08-03 2019-08-03 Out[facility] [id number] Common 15:00:00 15:00:00 t [facility] Spir it [address] [facility] Results Test Description Test Time Test Comments Results Result Comments Source POCT TEST 2022-07-23 17:03:00 Test Item Value Reference Range Interpretation Comme nts POCT PREG (test code = 1605) Negative On board controls acceptable with C Line (test code = 3574) Yes POCT PREG LOT # (test code = 3575) POCT PREG TEST DATE (test code = 3576) [id number] 17:03:00 Test Item Value Reference Range Interpretation Comments POCT PREG (test code = 1605) Negative On board controls acceptable with C Yes Line (test code = 3574) POCT PREG LOT # (test code = 3575) POCT PREG TEST DATE (test code = 3576) [facility]
--- NOTE | 2022-12-01 08:00 | ER ---
Nurse's Notes [facility] Name: Negrita Souza Age: 22 yrs Sex: Female : 2000 Arrival Date: 12/01/2022 Time: 07:33 Bed 14 Private MD: Diagnosis: Suicidal ideations;Schizophrenia, unspecified Presentation: 12/01 07:40 Chief complaint: EMS states: Patient found on the side of the road wondering. Pt states db feels manic and unsafe and has thoughts of killing self with a gun. Does not have access to a gun. hx of SI by carbon monoxide. Pt seen last night at [facility]. Coronavirus screen: Vaccine status: At this time, unable to obtain information related to travel outside the [place] At this time, the client does not indicate any symptoms associated with coronavirus-19. Ebola Screen: Patient negative for fever greater than or equal to 101.5 degrees Fahrenheit, and additional compatible Ebola Virus Disease symptoms Patient denies exposure to infectious person. Patient denies travel to an Ebola-affected area in the 21 days before illness onset. No symptoms or risks identified at this time. Initial Sepsis Screen: Does the patient meet any 2 criteria? HR > 90 bpm. No. Patient's initial sepsis screen is negative. Does the patient have a suspected source of infection? No. Patient's initial sepsis screen is negative. Risk Assessment: Do you want to hurt yourself or someone else? Patient reports desire/thoughts of hurting themselves or someone else. Provider notified. Onset of symptoms was December 01, 2022. 07:40 Method Of Arrival: EMS: [facility] db 07:40 Acuity: KARLIE 2 db Triage Assessment: 07:46 General: Appears in no apparent distress. comfortable, Behavior is calm, cooperative. db Pain: Denies pain. 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 - Social history:: Smoking status: Patient denies any tobacco usage or history of. - Family history:: not pertinent. - Hospitalizations: : No recent hospitalization is reported. Screenin:[address] [facility] ED Fall Risk Assessment (Adult) History of falling in the last 3 months, db including since admission No falls in past 3 months (0 pts) Confusion or Disorientation No (0 pts) Intoxicated or Sedated No (0 pts) Impaired Gait Yes (1 pt) Mobility Assist Device Used No (0 pt) Altered Elimination No (0 pt) Score/Fall Risk Level 0 - 2 = Low Risk Oriented to surroundings, Maintained a safe environment. Abuse screen: Denies threats or abuse. Denies injuries from another. Nutritional screening: No deficits noted. Tuberculosis screening: No symptoms or risk factors identified. Assessment: 07:47 Reassessment: Patient appears in no apparent distress at this time. Patient and/or db family updated on plan of care and expected duration. Pain level reassessed. Patient is alert, oriented x 3, equal unlabored respirations, skin warm/dry/pink. 08:24 Reassessment: Patient appears in no apparent distress at this time. Patient and/or db family updated on plan of care and expected duration. Pain level reassessed. Patient is alert, oriented x 3, equal unlabored respirations, skin warm/dry/pink. General: Appears in no apparent distress. comfortable, Behavior is calm, cooperative. Neuro: Level of Consciousness is awake, alert, obeys commands, Oriented to person, place, time, situation. Respiratory: Airway is patent Respiratory effort is even, unlabored, Respiratory pattern is regular, symmetrical. 10:06 Reassessment: Patient appears in no apparent distress at this time. Patient and/or db family updated on plan of care and expected duration. Pain level reassessed. Patient is alert, oriented x 3, equal unlabored respirations, skin warm/dry/pink. Neuro: Level of Consciousness is awake, alert, obeys commands, Oriented to person, place, time, situation. 10:07 Reassessment: Report given to RAS [place] from [facility]. db 11:14 Reassessment: Patient appears in no apparent distress at this time. Patient and/or db family updated on plan of care and expected duration. Pain level reassessed. Patient is alert, oriented x 3, equal unlabored respirations, skin warm/dry/pink. General: Appears in no apparent distress. comfortable, Behavior is calm, cooperative. Psych: 07:45 Commitment: Patient will be a voluntary commitment. db 07:47 [facility] Suicide Severity Screening: In the past month, have you wished you were db or wished you could go to sleep and not wake up? Patient responds "yes." Based off the client's responses additional C-SSRS screening is required. "In the past month, have you actually had any thoughts of killing yourself?" Patient responds "yes." Based off the client's response additional [facility] suicide severity screening questions to be further documented on paper forms. "In your lifetime, have you ever done anything, started to do anything, or prepared to do anything to end your life?" Patient responds "yes." Patient reports suicidal intent occurred greater than 3 months prior. Subjective: Patient's mood is sad, Delusions are denied, Hallucinations are auditory. Objective: Patient is cooperative, Speech is normal, Affect is appropriate. Interventions: Removed personal items and placed in bag. Patient placed in hospital gown. Searched person for dangerous items. Safety Checks: Personal items have been removed. 11:14 Pt denies substance abuse. db Vital Signs: 07:40 BP 112 / 78; Pulse 99; Resp 18; Temp 99(O); Pulse Ox 100% ; Weight 59.42 kg; Height 5 db ft. 0 in. ; 10:07 BP 112 / 76; Pulse 98; Resp 18; Temp 98.8(O); Pulse Ox 100% ; db 11:13 BP 118 / 74; Pulse 89; Resp 16; Pulse Ox 99% ; db 07:40 Body Mass Index 25.58 (59.42 kg, 152.4 cm) db ED Course: 07:37 Patient arrived in ED. bd 07:40 Flora Miller, RN is Primary Nurse. db 07:41 Remigio Earl MD is Attending Physician. rn 07:43 Triage completed. db 07:46 Arm band placed on left wrist. Patient placed in an exam room. db 08:15 Inserted saline lock: 20 gauge in right antecubital area, using aseptic technique. db Blood collected. 09:52 faxed chart to [facility]. bd 10:42 pt accepted in transfer to [facility] by dr Ware, admin approval given by nguyễn Garcia. 11:13 Patient has correct armband on for positive identification. Call light in reach. Side db rails up X 1. 11:13 No provider procedures requiring assistance completed. IV discontinued, intact, db bleeding controlled, No redness/swelling at site. Administered Medications: 11:13 Not Given (Patient Refused): Diazepam PO 2 mg PO once db Medication: 11:13 VIS not applicable for this client. db Outcome: 08:00 ER care complete, transfer ordered by . rn 11:13 Transferred by ground EMS Transfer form completed. Note: [place] db 11:13 Condition: stable 11:13 Instructed on the need for transfer. 11:19 Patient left the ED. db Signatures: Amalia Nelosn Roman, MD MD rn Benton, Danielle, RN RN db Corrections: (The following items were deleted from the chart) 07:46 07:40 Chief complaint: EMS states: Patient found on the side of the road wondering. Pt db states feels manic and unsafe and has thoughts of killing self. hx of SI by carbon monoxide. Pt seen last night at [facility]. db 11:12 10:58 Diazepam PO 2 mg PO db db
--- NOTE | 2022-12-01 08:00 | EDPHYS ---
Physician Documentation [facility] Name: Negrita Souza Age: 22 yrs Sex: Female : 2000 Arrival Date: 12/01/2022 Time: 07:33 Bed 14 Private MD: ED Physician Remigio Earl HPI: 12/01 07:57 This 22 yrs old Female presents to ER via EMS with complaints of Suicidal rn Ideation. 07:57 The patient presents to the emergency department with anxiety, depression, paranoia, rn psychosis, suicide ideation, and the patient has a plan, to shoot self. Onset: The symptoms/episode began/occurred at an unknown time. Associated signs and symptoms: Pertinent positives; suicide ideation, Pertinent negatives: abdominal pain, chest pain, fever, headache, homicidal ideation, shortness of breath. Severity of symptoms: At their worst the symptoms were moderate in the emergency department the symptoms are unchanged. The patient has experienced similar episodes in the past. The patient has been recently seen by a physician:. Pt reports suicidal ideations, command auditory hallucinations, seen at [place] [facility] this AM, discharged, found wandering on road. Plan is to shoot herself. Has tried carbon monoxide poisoning in past. . 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 - Social history:: Smoking status: Patient denies any tobacco usage or history of. - Family history:: not pertinent. - Hospitalizations: : No recent hospitalization is reported. ROS: 07:57 Constitutional: Negative for fever, chills, and weight loss, Eyes: Negative for injury, rn pain, redness, and discharge, Neck: Negative for injury, pain, and swelling, Cardiovascular: Negative for chest pain, palpitations, and edema, Respiratory: Negative for shortness of breath, cough, wheezing, and pleuritic chest pain, Abdomen/GI: Negative for abdominal pain, nausea, vomiting, diarrhea, and constipation, Back: Negative for injury and pain, MS/Extremity: Negative for injury and deformity, Skin: Negative for injury, rash, and discoloration, Neuro: Negative for headache, weakness, numbness, tingling, and seizure, Psych: Positive for depression, anxiety, suicide ideation, and hallucinations. Exam: 07:57 Constitutional: This is a well developed, well nourished patient who is awake, alert, rn and in no acute distress. Head/Face: Normocephalic, atraumatic. Cardiovascular: Regular rate and rhythm. No pulse deficits. Respiratory: No increased work of breathing, no retractions or nasal flaring. Neuro: Awake and alert, GCS 15, oriented to person, place, time, and situation. 08:54 ECG was reviewed by the Attending Physician. rn Vital Signs: 07:40 BP 112 / 78; Pulse 99; Resp 18; Temp 99(O); Pulse Ox 100% ; Weight 59.42 kg; Height 5 db ft. 0 in. ; 10:07 BP 112 / 76; Pulse 98; Resp 18; Temp 98.8(O); Pulse Ox 100% ; db 11:13 BP 118 / 74; Pulse 89; Resp 16; Pulse Ox 99% ; db 07:40 Body Mass Index 25.58 (59.42 kg, 152.4 cm) db MDM: 07:41 Patient medically screened. rn 07:57 Differential diagnosis: depression, psychosis secondary to non-compliance. Data rn reviewed: vital signs, nurses notes, and as a result, I will admit patient. Consideration of Admission/Observation Patient was admitted/placed on observation. Escalation of care including admission/observation considered. Counseling: I had a detailed discussion with the patient and/or guardian regarding: the historical points, exam findings, and any diagnostic results supporting the discharge/admit diagnosis, the need to transfer to another facility, for higher level of care, [facility] does not immediately have the required specialist. 12/01 07:55 Order name: Acetaminophen; Complete Time: 09:44 rn 12/01 07:55 Order name: Basic Metabolic Panel; Complete Time: 09:44 rn 12/01 07:55 Order name: CBC with Diff; Complete Time: 09:32 rn 12/01 07:55 Order name: ETOH Level; Complete Time: 09:44 rn 12/01 07:55 Order name: Hepatic Function; Complete Time: 09:44 rn 06/06 07:55 Order name: PT-INR; Complete Time: 09:32 rn 12/01 07:55 Order name: Test, Urine; Complete Time: 09:32 rn 12/01 07:55 Order name: Ptt, Activated; Complete Time: 09:32 rn 12/01 07:55 Order name: Salicylate; Complete Time: 09:44 rn 06 07:55 Order name: Urinalysis w/ reflexes; Complete Time: 09:32 rn 12/01 07:55 Order name: Urine Drug Screen; Complete Time: 09:44 rn 12/01 07:55 Order name: EKG; Complete Time: 07:55 rn 12/01 09:34 Order name: Diet Finger Food; Complete Time: 09:35 kj1 06 07:55 Order name: EKG - Nurse/Tech; Complete Time: 08:52 rn 12/01 07:55 Order name: IV Saline Lock; Complete Time: 08:23 rn 12/01 07:55 Order name: Labs collected and sent; Complete Time: 08:23 rn 12/01 07:55 Order name: Suicide Precautions; Complete Time: 08:23 rn 12/01 07:55 Order name: Suicide Screening ([place]); Complete Time: 08:23 rn 12/01 08:36 Order name: Labs - recollect needed: recollect all tubes; Complete Time: 08:52 bd EC:54 Rate is 85 beats/min. Rhythm is regular. QRS [place] is Normal. [place] interval is normal. QRS rn interval is normal. QT interval is normal. No Q waves. T waves are Normal. No ST changes noted. Clinical impression: Normal ECG. Interpreted by me. Reviewed by me. Administered Medications: 11:13 Not Given (Patient Refused): Diazepam PO 2 mg PO once db Disposition Summary: 12/01/22 08:00 Transfer Ordered Transfer Location: Psych Facility rn Reason: Higher level of care rn Condition: Stable rn Problem: an ongoing problem rn Symptoms: are unchanged rn Accepting Physician: (12/01/22 11:19) db Diagnosis - Suicidal ideations rn - Schizophrenia, unspecified rn Forms: - Medication Reconciliation Form rn - SBAR form rn Signatures: Dispatcher [employer] EDMS Amalia Nelson Roman, MD MD rn Benton, Danielle, RN RN db Corrections: (The following items were deleted from the chart) 11:19 08:00 rn db
[2022-12-01 08:34] LABS: Specific Gravity 1.021 (1.005-1.030)
[2022-12-01 08:47] LABS: Specific Gravity 1.021 (1.005-1.030); Urine Bacteria <20 /HPF (<20); Urine Bilirubin NEGATIVE (Negative); Urine Blood Negative (Negative); Urine Clarity Clear (Clear); Urine Color Yellow (Yellow); Urine Glucose NEGATIVE (Negative); Urine Mucus 1+ /HPF (None Seen); Urine Protein TRACE (Negative); Urine RBC <5 /HPF (None Seen); Urine Urobilinogen Normal (Normal); Urine pH 6.5 (5.0-7.0)
[2022-12-01 09:04] LABS: Absolute Lymphocytes (CBC) 1.4 K/uL (0.7-4.9); Hematocrit 39.9 % (36.0-45.0); Lymphocytes % 15.4 % (15.3-44.8); MCV 87.6 fL (80-100); MPV 8.2 fL (7.6-11.3); RBC Red Blood Cell Count 4.56 M/uL (3.86-4.86)
[2022-12-01 09:09] LABS: Protime INR 1.12
[2022-12-01 09:40] LABS: Barbiturates NEGATIVE (NEGATIVE); Benzodiazepines NEGATIVE (NEGATIVE); Cocaine NEGATIVE (NEGATIVE); METHAMPHETAM NEGATIVE (NEGATIVE); Methadone NEGATIVE (NEGATIVE); Opiates NEGATIVE (NEGATIVE); Phencyclidine NEGATIVE (NEGATIVE); THC Cannibis NEGATIVE (NEGATIVE)
[2022-12-01 09:40] LABS: ALT/SGPT 16 U/L (13-56); AST/SGOT 11 U/L (15-37); Albumin 5.1 g/dL (3.4-5.0); Alkaline Phosphatase 81 U/L (45-117); BUN Blood Urea Nitrogen 5 mg/dL (7-18); Bicarbonate 23 mEq/L (21-32); Bilirubin Direct 0.2 mg/dL (0-0.2); Bilirubin Indirect, Calculated 0.8 mg/dL (0.2-0.8); Glomerular Filtration Rate 129 ml/min (=/>90); Glucose Level 106 mg/dL (74-106); Potassium 3.7 mEq/L (3.5-5.1); Protein, Total 7.6 g/dL (6.4-8.2); Sodium Level 138 mEq/L (136-145)
[2022-12-01] MEDS ORDERED: DIAZEPAM 2 MG TABLET ONE (10:59)
[2022-12-01 11:44] VITALS: TEMP 98.8
[2022-12-01 11:45] VITALS: BP 118/74; O2SAT 99
--- NOTE | 2022-12-02 07:18 | EKG ---
Test Date: 2022-12-01 Test Time: 08:49:23 Assistant Purchasing Manager: EMANI MEASUREMENT RESULTS: Intervals: Rate: 85 HI: 122 QRSD: 66 QT: 328 QTc: 390 [place]: P: 42 HI: 122 QRS: 93 T: 54 INTERPRETIVE STATEMENTS: Normal sinus rhythm Rightward axis Borderline ECG Compared to ECG 10/13/2022 06:31:07 Right-axis deviation now present Electronically Signed On 12-02-22 07:14:17 CDT by Guero Buchanan
== END 2022-12-01 11:19 ==
LOC: ER 07:33
DX: R45.851 Suicidal ideations (principal); F20.9 Schizophrenia, unspecified
CPT/HCPCS: 36415; 80048; 80076; 80143; 80179; 80307; 81001; 81025; 82077; 85025; 85610; 85730; 93005; 99285